=== PATIENT | female | born 1960 | race Caucasian/White ===

== ENCOUNTER 2017-08-24 16:01 | Inpatient (IN) | payer OTHER ==
[2017-08-24] MEDS ORDERED: SALINE 3% 15 ML NEB TX ONE (17:07)
[2017-08-24] MEDS ORDERED: NS 1/2 1000 ML IV 1,000 ML IV ONE (17:52)
[2017-08-24] MEDS: ROBITUSSIN DM PO SCH ×2 (17:58→21:00)
[2017-08-24] MEDS: LEVAQUIN PREMIX IV 750 MG 750 MG/150 ML BAG IV SCH (17:58)
[2017-08-24] MEDS: TAMIFLU PO SCH ×2 (17:58→21:00)
[2017-08-24] MEDS: FORTAZ or TAZICEF INJ 1 GM in NS 100 ML IV + SPIKE MINIBAG* 100 ML IV SCH ×2 (17:58→22:00)
[2017-08-24] MEDS: NS 1/2 1000 ML IV 1,000 ML IV SCH (17:58)
[2017-08-24 18:21] LABS: BASOPHILS # (AUTO) 0.1 X10^3/uL (0.0-0.1); BASOPHILS % (AUTO) 0.5 % (0.2-1.0); EOSINOPHILS # (AUTO) 0.3 x10^3/uL (0.0-0.2); EOSINOPHILS % (AUTO) 1.3 % (0.9-2.9); HEMATOCRIT 37.9 % (36.0-47.0); HEMOGLOBIN 13.1 g/dL (12.0-16.0); LYMPHOCYTES # (AUTO) 2.3 X10^3/uL (1.3-2.9); LYMPHOCYTES % (AUTO) 9.5 % (21.0-51.0); MEAN CORPUSCULAR HEMOGLOBIN 33.1 pg (27.0-34.0); MEAN CORPUSCULAR HGB CONC 34.6 g/dL (33.0-35.0); MEAN CORPUSCULAR VOLUME 95.8 fL (80.0-100.0); MEAN PLATELET VOLUME 6.5 fL (7.4-11.0); MONOCYTES % (AUTO) 4.1 % (0.0-13.0); NEUTROPHILS % (AUTO) 84.6 % (42.0-75.0); PLATELET COUNT 355 X10^3/uL (150.0-450.0); RED BLOOD COUNT 3.96 X10^6/uL (3.5-5.4); RED CELL DISTRIBUTION WIDTH 14.9 % (11.6-16.5); WHITE BLOOD COUNT 23.6 X10^3/uL (3.6-10.0)
[2017-08-24 18:40] LABS: BAND NEUTROPHILS % 10 % (0-10); PLATELET MORPHOLOGY COMMENT NORMAL (NORMAL)
[2017-08-24 18:46] LABS: ALANINE AMINOTRANSFERASE 20 Units/L (12-78); ALBUMIN 3.3 g/dL (3.4-5.0); ALKALINE PHOSPHATASE 67 Units/L (46-116); ASPARTATE AMINO TRANSFERASE 17 Units/L (15-37); BLOOD UREA NITROGEN 13 mg/dL (7-18); CALCIUM 8.2 mg/dL (8.5-10.1); CARBON DIOXIDE 29.5 mmol/L (21-32); CHLORIDE 102 mmol/L (98-107); CKMB % 2.1 % (<4); COR CA(FOR HYPOALB) 8.8 mg/dL (8.5-10.1); CREATINE KINASE 94 Units/L (26-192); CREATININE 0.85 mg/dL (0.55-1.02); SODIUM 139 mmol/L (136-145); TOTAL PROTEIN 6.5 g/dL (6.4-8.2); TROPONIN I < 0.02 ng/mL (0-1.5); eGFR BLACK RACES > 60 (>60); eGFR NON BLACK RACES > 60 (>60)
[2017-08-24 19:09] VITALS: BMI 23.6
[2017-08-24] MEDS ORDERED: ULTRAM PO ONE (21:52)
[2017-08-24 22:13] LABS: BILIRUBIN,URINE NEGATIVE (NEGATIVE); BLOOD/HEMOGLOBIN,URINE 1+ (NEGATIVE); GLUCOSE, URINE NEGATIVE (NEGATIVE); KETONES,URINE NEGATIVE (NEGATIVE); LEUKOCYTE ESTERASE ,URINE NEGATIVE (NEGATIVE); NITRITES,URINE NEGATIVE (NEGATIVE); PH,URINE 6.5 (5.0 - 8.0); PROTEIN,URINE NEGATIVE (NEGATIVE); UROBILINOGEN,URINE NORMAL (NORMAL)
[2017-08-24 22:19] LABS: CKMB % 1.9 % (<4); CREATINE KINASE 78 Units/L (26-192); CREATINE KINASE MB 1.5 ng/mL (0-4.0); TROPONIN I < 0.02 ng/mL (0-1.5)
[2017-08-24 22:26] LABS: APPEARANCE,URINE CLEAR (CLEAR); BACTERIA,URINE NEGATIVE /HPF (NEGATIVE); COLOR,URINE YELLOW (YELLOW); SQUAMOUS EPITHELIAL CELL,UR RARE /HPF (NEGATIVE)
--- NOTE | 2017-08-24 22:37 | RAD ---
HISTORY: Chest pain, hemoptysis, and pneumonia. Study: PA and lateral chest. Comparison: None available. Findings: The trachea is midline. The cardiac silhouette is unremarkable. Right basilar and right middle lobe opacities with suggestion of a parapneumonic effusion. Left lower lobe atelectasis versus early infi ltrate. Chronic emphysematous changes. No obvious pneumothorax. A thoracic nerve stimulator is seen. The bony thorax is unremarkable. IMPRESSION: Likely multifocal pneumonia. Recommend clinical/laboratory correlation and follow-up ches t x-ray in 4-6 weeks to document stability/resolution. Reported By:
[2017-08-25] MEDS ORDERED: XOPENEX 1.25 MG/3 ML NEBULE NEB SCH
[2017-08-25] MEDS: XOPENEX 1.25 MG/3 ML NEBULE NEB SCH ×4 (01:14→17:00)
[2017-08-25 01:58] LABS: CREATINE KINASE 61 Units/L (26-192); CREATINE KINASE MB 1.2 ng/mL (0-4.0); TROPONIN I < 0.02 ng/mL (0-1.5)
[2017-08-25 05:50] LABS: BASOPHILS # (AUTO) 0.1 X10^3/uL (0.0-0.1); BASOPHILS % (AUTO) 0.6 % (0.2-1.0); EOSINOPHILS # (AUTO) 0.3 x10^3/uL (0.0-0.2); EOSINOPHILS % (AUTO) 1.8 % (0.9-2.9); HEMATOCRIT 34.4 % (36.0-47.0); HEMOGLOBIN 11.9 g/dL (12.0-16.0); LYMPHOCYTES % (AUTO) 12.4 % (21.0-51.0); MEAN CORPUSCULAR HEMOGLOBIN 33.3 pg (27.0-34.0); MEAN CORPUSCULAR HGB CONC 34.4 g/dL (33.0-35.0); MEAN CORPUSCULAR VOLUME 96.7 fL (80.0-100.0); MEAN PLATELET VOLUME 6.7 fL (7.4-11.0); MONOCYTES # (AUTO) 0.7 x10^3/uL (0.3-0.8); MONOCYTES % (AUTO) 4.5 % (0.0-13.0); NEUTROPHILS # (AUTO) 13.1 x10^3/uL (2.2-4.8); NEUTROPHILS % (AUTO) 80.7 % (42.0-75.0); PLATELET COUNT 331 X10^3/uL (150.0-450.0); RED BLOOD COUNT 3.56 X10^6/uL (3.5-5.4); WHITE BLOOD COUNT 16.3 X10^3/uL (3.6-10.0)
[2017-08-25 05:55] LABS: ALANINE AMINOTRANSFERASE 18 Units/L (12-78); ALBUMIN 2.8 g/dL (3.4-5.0); ALKALINE PHOSPHATASE 58 Units/L (46-116); ASPARTATE AMINO TRANSFERASE 14 Units/L (15-37); BLOOD UREA NITROGEN 11 mg/dL (7-18); CALCIUM 7.8 mg/dL (8.5-10.1); CHLORIDE 104 mmol/L (98-107); COR CA(FOR HYPOALB) 8.8 mg/dL (8.5-10.1); COR NA(FOR HYPERGLY) 141 mmol/L (136-145); CREATININE 0.76 mg/dL (0.55-1.02); SODIUM 140 mmol/L (136-145); TOTAL PROTEIN 5.9 g/dL (6.4-8.2); eGFR BLACK RACES > 60 (>60); eGFR NON BLACK RACES > 60 (>60)
[2017-08-25] MEDS: FORTAZ or TAZICEF INJ 1 GM in NS 100 ML IV + SPIKE MINIBAG* 100 ML IV SCH ×3 (05:58→21:46)
--- NOTE | 2017-08-25 08:31 | RAD ---
HISTORY: Chest pain, hemoptysis, pneumonia. Prior history of rheumatoid arthritis, COPD, lupus. Study: Single-view chest Comparison: 08/24/2017. Findings: Trachea is midline. Heart size is upper normal. Increasing density is present in the lung bases, refl ecting increased infiltrate, edema and/or pleural fluid. No pneumothorax is seen. Osseous structures are intact. Thoracic spine stimulating electrodes are again noted. IMPRESSION: Increasing bibasilar lung densities reflecting increase in infiltrate, edema and/or pleural fluid. Reported By:
[2017-08-25] MEDS: LEVAQUIN PREMIX IV 750 MG 750 MG/150 ML BAG IV SCH (09:17)
[2017-08-25] MEDS: ROBITUSSIN DM PO SCH ×4 (09:17→21:47)
[2017-08-25] MEDS: TAMIFLU PO SCH ×2 (09:17→21:47)
[2017-08-25] MEDS: PEPCID 20 MG IV PREMIX* 20 MG/50 ML BAG IV SCH ×2 (12:10→21:46)
[2017-08-25] MEDS: SOLU-Medrol 40 MG VIAL IVP SCH ×3 (12:11→21:47)
[2017-08-25] MEDS: PERCOCET TAB 5/325 MG PO PRN ×2 (12:12→21:46)
[2017-08-25] MEDS: PROTONIX INJ 40 MG VIAL IVP SCH ×2 (12:12→21:47)
[2017-08-25] MEDS: DIFLUCAN PO SCH (12:12)
[2017-08-25] MEDS: FOLIC ACID TAB 1 MG PO SCH (12:12)
[2017-08-25] MEDS: ELIQUIS PO SCH ×2 (12:12→21:47)
--- NOTE | 2017-08-25 14:04 | DR.UPDATE ---
H&P Update History and Physical Update: PRESENTED TO THE OFFICE TODAY. SHE WAS ADMITTED FOR PNEUMONIA, HEMOPTYSIS , AND CHEST PAIN. A H&P WAS COMPLETED PRIOR TO ADMISSION. PATIENT HAS BEEN SEEN AND EXAMINED WITH NO CHANGES NOTED TO H&P. Changes noted: NO Yes with the following:
[2017-08-25] MEDS ORDERED: POTASSIUM CHL 60 MEQ/NS 0.45% 500 ML IV PRN (14:13)
[2017-08-25] MEDS ORDERED: POTASSIUM CHLORIDE LIQ 20 MEQ UDC PO PRN (14:13)
[2017-08-25] MEDS ORDERED: K-RIDER 10 MEQ/NS 100 ML 10 MEQ/100 ML BAG IV PRN (14:13)
[2017-08-25] MEDS ORDERED: POTASSIUM CHL 40 MEQ/NS 0.45% 500 ML IV PRN (14:13)
[2017-08-25] MEDS ORDERED: K-LYTE EFFERVESCENT PO PRN (14:13)
[2017-08-25] MEDS ORDERED: NS 1/2 1000 ML IV 1,000 ML IV ONE (14:18)
[2017-08-25] MEDS: NS 1/2 1000 ML IV 1,000 ML IV SCH ×2 (14:22→21:54)
[2017-08-25] MEDS: ELAVIL PO SCH (21:47)
[2017-08-25] MEDS: VALIUM PO SCH (21:47)
[2017-08-25] MEDS: CARDIZEM SR 120 MG PO SCH (21:47)
[2017-08-26] MEDS: XOPENEX 1.25 MG/3 ML NEBULE NEB SCH ×4 (00:33→18:01)
[2017-08-26] MEDS ORDERED: NS 100 ML IV + SPIKE MINIBAG* 100 ML IV ONE (05:46)
[2017-08-26] MEDS ORDERED: FORTAZ or TAZICEF INJ ONE (05:49)
[2017-08-26] MEDS: SOLU-Medrol 40 MG VIAL IVP SCH ×3 (05:51→21:49)
[2017-08-26] MEDS: FORTAZ or TAZICEF INJ 1 GM in NS 100 ML IV + SPIKE MINIBAG* 100 ML IV SCH ×3 (05:51→21:48)
[2017-08-26 06:04] LABS: ALANINE AMINOTRANSFERASE 17 Units/L (12-78); ALKALINE PHOSPHATASE 62 Units/L (46-116); ASPARTATE AMINO TRANSFERASE 12 Units/L (15-37); BLOOD UREA NITROGEN 9 mg/dL (7-18); CARBON DIOXIDE 27.4 mmol/L (21-32); CHLORIDE 104 mmol/L (98-107); COR CA(FOR HYPOALB) 8.8 mg/dL (8.5-10.1); COR NA(FOR HYPERGLY) 143 mmol/L (136-145); CREATININE 0.75 mg/dL (0.55-1.02); SODIUM 139 mmol/L (136-145); TOTAL PROTEIN 6.5 g/dL (6.4-8.2); eGFR BLACK RACES > 60 (>60); eGFR NON BLACK RACES > 60 (>60)
[2017-08-26 06:13] LABS: BASOPHILS % (AUTO) 0.1 % (0.2-1.0); HEMATOCRIT 37.7 % (36.0-47.0); HEMOGLOBIN 12.7 g/dL (12.0-16.0); LYMPHOCYTES # (AUTO) 0.5 X10^3/uL (1.3-2.9); LYMPHOCYTES % (AUTO) 3.8 % (21.0-51.0); MEAN CORPUSCULAR HEMOGLOBIN 33.1 pg (27.0-34.0); MEAN CORPUSCULAR HGB CONC 33.8 g/dL (33.0-35.0); MEAN PLATELET VOLUME 6.5 fL (7.4-11.0); MONOCYTES # (AUTO) 0.1 x10^3/uL (0.3-0.8); MONOCYTES % (AUTO) 1.2 % (0.0-13.0); NEUTROPHILS % (AUTO) 94.9 % (42.0-75.0); PLATELET COUNT 364 X10^3/uL (150.0-450.0); RED BLOOD COUNT 3.85 X10^6/uL (3.5-5.4); RED CELL DISTRIBUTION WIDTH 14.5 % (11.6-16.5); WHITE BLOOD COUNT 12.6 X10^3/uL (3.6-10.0)
--- NOTE | 2017-08-26 07:05 | RAD ---
Examination: AP chest History: Chest pain, pneumonia Comparison reference 08/25/2017 Findings: Continued normal heart size. There is interval improvement in aeration of the lungs with de creasing airspace disease in the lower lobes. Persistent vascular congestion and mild interstitial in filtrates persist. Impression: Significant improvement in 1 day, most consistent with resolving CHF/edema. Reported By:
[2017-08-26 07:20] LABS: PLATELET MORPHOLOGY COMMENT NORMAL (NORMAL)
[2017-08-26] MEDS: TAMIFLU PO SCH ×2 (09:09→20:58)
[2017-08-26] MEDS: CARDIZEM SR 120 MG PO SCH ×2 (09:10→20:55)
[2017-08-26] MEDS: ELIQUIS PO SCH ×2 (09:10→20:57)
[2017-08-26] MEDS: DIFLUCAN PO SCH (09:10)
[2017-08-26] MEDS: FOLIC ACID TAB 1 MG PO SCH (09:10)
[2017-08-26] MEDS: ROBITUSSIN DM PO SCH ×4 (09:10→21:02)
[2017-08-26] MEDS: ESTRATEST TAB 1.25/2.5 MG PO SCH (09:10)
[2017-08-26] MEDS: PROTONIX INJ 40 MG VIAL IVP SCH ×2 (09:10→20:59)
[2017-08-26] MEDS: PEPCID 20 MG IV PREMIX* 20 MG/50 ML BAG IV SCH ×2 (09:10→20:58)
[2017-08-26] MEDS: LEVAQUIN PREMIX IV 750 MG 750 MG/150 ML BAG IV SCH (09:11)
[2017-08-26] MEDS: PERCOCET TAB 5/325 MG PO PRN ×2 (10:44→21:52)
[2017-08-26] MEDS: LASIX IVP SCH ×2 (10:56→20:58)
[2017-08-26] MEDS: HumuLIN R SUBCUT PRN ×2 (12:25→16:35)
[2017-08-26] MEDS ORDERED: NS 1/2 1000 ML IV 1,000 ML IV ONE (14:12)
[2017-08-26] MEDS: TUSSIONEX PENNKINETIC SUSP PO PRN ×2 (14:33→18:35)
[2017-08-26] MEDS: NS 1/2 1000 ML IV 1,000 ML IV SCH (14:33)
--- NOTE | 2017-08-26 20:19 | PCM.PROG ---
Progress Note - Progress Note for Day of Date: 08/25/17 - Subjective Subjective: WAS ADMITTED YESTERDAY. SHE IS CURRENTLY BEING TREATED FOR PNEUMONIA. TODAY, SHE IS ALERT AND ORIENTED, LYING IN BED IN MORNING ROUNDS. SHE IS NOTED WITH COMPLAINTS OF COUGH, SHORTNESS OF BREATH, AND A NON- PRODUCTIVE COUGH. SHE DENIES COMPLAINTS OF CHEST PAIN THIS MORNING. ON EXAMINATION, HEART IS REGULAR IN RATE AND RHYTHM. BILATERAL LUNGS ARE NOTED WITH SCATTERED WHEEZING AND RHONCHI THROUGHOUT. SHE IS CURRENTLY UTILIZING OXYGEN VIA NASAL CANNULA AT 2L/MIN. ABDOMEN IS FLAT, SOFT, AND NON-TENDER WITH NORMAL BOWEL SOUNDS NOTED IN ALL QUADRANTS. THERE IS NORMAL RANGE OF MOTION NOTED TO ALL EXTREMITIES. HER VITALS THIS MORNING ARE 98.1-81-25-95%-96/55. ABNORMAL LAB VALUES INCLUDE THE FOLLOWING: WBC 16.3, HGB 11.9, HCT 34.4, POTASSIUM 3.2, GLUCOSE 125, AST 14, TOTAL PROTEIN 5.9, ALBUMIN 2.8. BLOOD CULTURES AND A URINE CULTURE ARE PENDING. CARDIAC ENZYMES AND EKGs HAVE BEEN WITHIN NORMAL LIMITS. A CHEST XRAY WAS OBTAINED THIS MORNING AND REVEALED INCREASING BIBASILAR LUNG DENSITIES REFLECTING INCREASE IN INFILTRATE, EDEMA, AND/OR PLEURAL FLUID. TODAY, WE WILL CONTINUE WITH CURRENT IV ANTIBIOTICS AND RESPIRATORY TREATMENTS. WE WILL START SOLU-MEDROL 60MG IV Q8H, PEPCID 20MG IV Q12H, AND PROTONIX 40MG IV BID. OTHERWISE, WE WILL CONTINUE WITH CURRENT PLAN OF CARE TODAY. WE PLAN TO FOLLOW UP WITH AM LABS AND CONTINUE TO MONITOR PATIENT. - Past Medical Family Social History Past Med/Fam/Surg Hx: No changes since H&P Allergies: Allergies gabapentin [From Gralise] Allergy (Verified 08/24/17 17:32) - Review of Systems ROS: No change since H&P - Vital Signs and I&O's Vital Signs: Temperature 98.7 F Pulse Rate [Right Brachial] 88 Pulse Rate [Left Brachial] 81 Pulse Rate [Apical] 80 Pulse Rate 89 Respiratory Rate 22 Blood Pressure [Right Arm] 115/59 Blood Pressure [Left Arm] 101/60 O2 Sat by Pulse Oximetry 94 Intake and Output: Intake & Output 08/24/17 08/25/17 08/26/17 08/27/17 11:59 11:59 11:59 11:59 Intake Total 1675 1772 2048 Output Total 2500 Balance 3070 -388 2047 - Physical Exam Oriented: Normal Eyes: Normal Ear: Normal Nose: Normal Throat: Normal Respiratory: Right, Left, Generalized, Wheezes, Rhonchi Cardiovascular: Normal : Normal Auscultation: Bowel Sounds: Normal Palpation: Normal Tenderness: Normal Skin: Normal Musculoskeletal: Normal Psychiatric: Normal Mood Description: Calm Affect: Normal Speech Pattern: Clear, Appropriate - Laboratory and Diagnostics Result Diagrams: 08/26/17 05:06 08/26/17 05:06 Labs: 08/24/17 17:50 Sputum - Expectorated Sputum Sputum Culture - Preliminary 08/24/17 17:50 Sputum - Expectorated Sputum - Final 08/24/17 17:52 Blood Blood Culture - Preliminary 08/24/17 17:50 Blood Blood Culture - Preliminary Laboratory WBC 12.6 X10^3/uL (3.6-10.0) H 08/26/17 05:06 RBC 3.85 X10^6/uL (3.5-5.4) 08/26/17 05:06 Hgb 12.7 g/dL (12.0-16.0) 08/26/17 05:06 Hct 37.7 % (36.0-47.0) 08/26/17 05:06 MCV 98.0 fL (80.0-100.0) 08/26/17 05:06 MCH 33.1 pg (27.0-34.0) 08/26/17 05:06 MCHC 33.8 g/dL (33.0-35.0) 08/26/17 05:06 RDW 14.5 % (11.6-16.5) 08/26/17 05:06 Plt Count 364 X10^3/uL (150.0-450.0) 08/26/17 05:06 Plt Count Comment Adequate (ADEQUATE) 08/26/17 05:06 MPV 6.5 fL (7.4-11.0) L 08/26/17 05:06 Neut % (Auto) 94.9 % (42.0-75.0) H 08/26/17 05:06 Lymph % (Auto) 3.8 % (21.0-51.0) L 08/26/17 05:06 [place] % (Auto) 1.2 % (0.0-13.0) 08/26/17 05:06 Eos % (Auto) 0.0 % (0.9-2.9) L 08/26/17 05:06 Baso % (Auto) 0.1 % (0.2-1.0) L 08/26/17 05:06 Neut # (Auto) 12.0 x10^3/uL (2.2-4.8) H 08/26/17 05:06 Lymph # (Auto) 0.5 X10^3/uL (1.3-2.9) L 08/26/17 05:06 [place] # (Auto) 0.1 x10^3/uL (0.3-0.8) L 08/26/17 05:06 Eos # (Auto) 0.0 x10^3/uL (0.0-0.2) 08/26/17 05:06 Baso # (Auto) 0.0 X10^3/uL (0.0-0.1) 08/26/17 05:06 Absolute Nucleated RBC 0.0 /100WBC 08/26/17 05:06 Total Counted 100 08/26/17 05:06 Neutrophils % (Manual) 95 % (39-76) H 08/26/17 05:06 Band Neutrophils % 10 % (0-10) 08/24/17 17:50 Lymphocytes % (Manual) 3 % (13-43) L 08/26/17 05:06 Monocytes % (Manual) 2 % (4-9) L 08/26/17 05:06 Plt Morphology Comment Normal (NORMAL) 08/26/17 05:06 RBC Morphology Normal (NORMAL) 08/26/17 05:06 Sodium 139 mmol/L (136-145) 08/26/17 05:06 Corrected Sodium 143 mmol/L (136-145) 08/26/17 05:06 Potassium 3.6 mmol/L (3.5-5.1) 08/26/17 05:06 Chloride 104 mmol/L (98-107) 08/26/17 05:06 Carbon Dioxide 27.4 mmol/L (21-32) 08/26/17 05:06 BUN 9 mg/dL (7-18) 08/26/17 05:06 Creatinine 0.75 mg/dL (0.55-1.02) 08/26/17 05:06 Est GFR (MDRD) Af Amer > 60 (>60) 08/26/17 05:06 Est GFR (MDRD) Non-Af > 60 (>60) 08/26/17 05:06 Glucose 275 mg/dL (65-99) H 08/26/17 05:06 POC Glucose (mg/dL) 161 mg/dL (65-99) H 08/26/17 20:04 Calcium 8.0 mg/dL (8.5-10.1) L 08/26/17 05:06 Corrected Calcium 8.8 mg/dL (8.5-10.1) 08/26/17 05:06 Magnesium 1.6 mg/dL (1.7-2.9) L 08/25/17 04:42 Total Bilirubin 0.10 mg/dL (0.2-1.0) L 08/26/17 05:06 AST 12 Units/L (15-37) L 08/26/17 05:06 ALT 17 Units/L (12-78) 08/26/17 05:06 Alkaline Phosphatase 62 Units/L (46-116) 08/26/17 05:06 Creatine Kinase 61 Units/L (26-192) 08/25/17 01:23 CK-MB (CK-2) 1.2 ng/mL (0-4.0) 08/25/17 01:23 CK/CKMB % Calc 2.0 % (<4) 08/25/17 01:23 Troponin I < 0.02 ng/mL (0-1.5) 08/25/17 01:23 B-Natriuretic Peptide 454 pg/mL (0-79) H 08/26/17 05:06 Total Protein 6.5 g/dL (6.4-8.2) 08/26/17 05:06 Albumin 3.0 g/dL (3.4-5.0) L 08/26/17 05:06 Globulin 3.5 g/dL (2.5-4.5) 08/26/17 05:06 Albumin/Globulin Ratio 0.9 Ratio (1.1-2.1) L 08/26/17 05:06 Specimen Type Clean catch urine 08/24/17 21:45 Urine Color Yellow (YELLOW) 08/24/17 21:45 Urine Appearance Clear (CLEAR) 08/24/17 21:45 Urine pH 6.5 (5.0 - 8.0) 08/24/17 21:45 Ur Specific [place] 1.005 (1.000-1.030) 08/24/17 21:45 Urine Protein Negative (NEGATIVE) 08/24/17 21:45 Urine Glucose (UA) Negative (NEGATIVE) 08/24/17 21:45 Urine Ketones Negative (NEGATIVE) 08/24/17 21:45 Urine Occult Blood 1+ (NEGATIVE) 08/24/17 21:45 Urine Nitrite Negative (NEGATIVE) 08/24/17 21:45 Urine Bilirubin Negative (NEGATIVE) 08/24/17 21:45 Urine Urobilinogen Normal (NORMAL) 08/24/17 21:45 Ur Leukocyte Esterase Negative (NEGATIVE) 08/24/17 21:45 Urine RBC 3-5 /HPF (NONE SEEN) 08/24/17 21:45 Urine WBC 0-2 /HPF (NONE SEEN) 08/24/17 21:45 Ur Squamous Epith Cells Rare /HPF (NEGATIVE) 08/24/17 21:45 Urine Bacteria Negative /HPF (NEGATIVE) 08/24/17 21:45 Ur Culture Indicated? No/not indicated 08/24/17 21:45 Influenza Type A (PCR) Negative (NEGATIVE) 08/24/17 17:45 Influenza Type B (PCR) Negative (NEGATIVE) 08/24/17 17:45 - Plan (1) Pneumonia Status: Acute Qualifiers: Pneumonia type: due to unspecified organism Laterality: left Lung location: lower lobe of lung Qualified Code(s): J18.1 - Lobar pneumonia, unspecified organism Plan: LEVAQUIN 750MG IV DAILY, FORTAZ 1GM IV Q8H, SOLU-MEDROL 60MG IV Q8H, RESPIRATORY TREATMENTS, SUPPLEMENTAL OXYGEN, CONTINUE TO MONITOR (2) Hemoptysis Status: Acute Plan: CONTINUE TO MONITOR
[2017-08-26] MEDS: ELAVIL PO SCH (20:57)
[2017-08-26] MEDS: VALIUM PO SCH (21:03)
[2017-08-27] MEDS: XOPENEX 1.25 MG/3 ML NEBULE NEB SCH ×4 (00:15→17:11)
[2017-08-27] MEDS: NS 1/2 1000 ML IV 1,000 ML IV SCH ×3 (01:25→22:06)
[2017-08-27] MEDS: FORTAZ or TAZICEF INJ 1 GM in NS 100 ML IV + SPIKE MINIBAG* 100 ML IV SCH ×3 (05:25→22:05)
[2017-08-27] MEDS: SOLU-Medrol 40 MG VIAL IVP SCH ×3 (05:25→22:08)
[2017-08-27 05:45] LABS: BASOPHILS # (AUTO) 0.1 X10^3/uL (0.0-0.1); BASOPHILS % (AUTO) 0.3 % (0.2-1.0); HEMATOCRIT 36.4 % (36.0-47.0); HEMOGLOBIN 12.6 g/dL (12.0-16.0); LYMPHOCYTES # (AUTO) 0.6 X10^3/uL (1.3-2.9); LYMPHOCYTES % (AUTO) 3.5 % (21.0-51.0); MEAN CORPUSCULAR HEMOGLOBIN 33.4 pg (27.0-34.0); MEAN CORPUSCULAR HGB CONC 34.5 g/dL (33.0-35.0); MEAN CORPUSCULAR VOLUME 96.6 fL (80.0-100.0); MEAN PLATELET VOLUME 6.5 fL (7.4-11.0); MONOCYTES # (AUTO) 0.5 x10^3/uL (0.3-0.8); MONOCYTES % (AUTO) 2.8 % (0.0-13.0); NEUTROPHILS # (AUTO) 15.5 x10^3/uL (2.2-4.8); NEUTROPHILS % (AUTO) 93.4 % (42.0-75.0); PLATELET COUNT 349 X10^3/uL (150.0-450.0); RED BLOOD COUNT 3.76 X10^6/uL (3.5-5.4); RED CELL DISTRIBUTION WIDTH 15.2 % (11.6-16.5); WHITE BLOOD COUNT 16.6 X10^3/uL (3.6-10.0)
[2017-08-27 05:55] LABS: ALANINE AMINOTRANSFERASE 43 Units/L (12-78); ALBUMIN 3.1 g/dL (3.4-5.0); ALKALINE PHOSPHATASE 62 Units/L (46-116); ASPARTATE AMINO TRANSFERASE 32 Units/L (15-37); BLOOD UREA NITROGEN 14 mg/dL (7-18); CALCIUM 8.1 mg/dL (8.5-10.1); CARBON DIOXIDE 27.4 mmol/L (21-32); CHLORIDE 105 mmol/L (98-107); COR CA(FOR HYPOALB) 8.8 mg/dL (8.5-10.1); COR NA(FOR HYPERGLY) 144 mmol/L (136-145); CREATININE 0.85 mg/dL (0.55-1.02); SODIUM 143 mmol/L (136-145); TOTAL PROTEIN 6.6 g/dL (6.4-8.2); eGFR BLACK RACES > 60 (>60); eGFR NON BLACK RACES > 60 (>60)
[2017-08-27 06:17] LABS: BAND NEUTROPHILS % 4 % (0-10); PLATELET MORPHOLOGY COMMENT NORMAL (NORMAL)
[2017-08-27] MEDS: TUSSIONEX PENNKINETIC SUSP PO PRN ×2 (06:50→22:07)
--- NOTE | 2017-08-27 07:40 | RAD ---
HISTORY: Chest pain, hemoptysis, pneumonia Study: Chest AP portable Comparison: 08/26/2017 Findings: The heart is within normal limits in size. The trudy are normal. The lungs are mildly hyperinflated. D iffuse interstitial lung changes are present not significantly changed from the prior examination. Th ere is a mild superimposed alveolar infiltrate in the right lung base also unchanged no pleural effus ions are identified. The bony thorax is unremarkable. IMPRESSION: Diffuse interstitial lung changes, stable Right basilar infiltrate, stable Reported By:
[2017-08-27] MEDS: ELIQUIS PO SCH ×2 (09:40→22:07)
[2017-08-27] MEDS: CARDIZEM SR 120 MG PO SCH ×2 (09:40→22:07)
[2017-08-27] MEDS: FOLIC ACID TAB 1 MG PO SCH (09:40)
[2017-08-27] MEDS: TAMIFLU PO SCH ×2 (09:40→22:07)
[2017-08-27] MEDS: DIFLUCAN PO SCH (09:40)
[2017-08-27] MEDS: ESTRATEST TAB 1.25/2.5 MG PO SCH (09:40)
[2017-08-27] MEDS: LEVAQUIN PREMIX IV 750 MG 750 MG/150 ML BAG IV SCH (09:41)
[2017-08-27] MEDS: ROBITUSSIN DM PO SCH ×4 (09:41→22:58)
[2017-08-27] MEDS: PROTONIX INJ 40 MG VIAL IVP SCH ×2 (09:41→22:09)
[2017-08-27] MEDS: LASIX IVP SCH ×2 (09:41→22:09)
[2017-08-27] MEDS: PEPCID 20 MG IV PREMIX* 20 MG/50 ML BAG IV SCH ×2 (09:41→22:05)
[2017-08-27] MEDS ORDERED: NS 1/2 1000 ML IV 1,000 ML IV ONE ×2 (09:51→21:56)
[2017-08-27] MEDS: PERCOCET TAB 5/325 MG PO PRN ×2 (09:55→22:08)
[2017-08-27] MEDS ORDERED: MUCOMYST 20% 200 MG/ML NEB SCH (11:45)
[2017-08-27] MEDS: MUCOMYST 20% 200 MG/ML NEB SCH (17:11)
[2017-08-27] MEDS: ELAVIL PO SCH (22:07)
[2017-08-27] MEDS: VALIUM PO SCH (22:08)
[2017-08-28] MEDS ORDERED: PULMICORT NEB TX 0.5 MG NEB ONE (00:58)
[2017-08-28] MEDS: XOPENEX 1.25 MG/3 ML NEBULE NEB SCH ×2 (01:15→05:52)
[2017-08-28] MEDS: MUCOMYST 20% 200 MG/ML NEB SCH ×2 (01:15→05:52)
[2017-08-28] MEDS ORDERED: NS 1/2 1000 ML IV 0 ML IV ONE (05:29)
[2017-08-28 05:38] LABS: BASOPHILS % (AUTO) 0.2 % (0.2-1.0); HEMATOCRIT 37.9 % (36.0-47.0); LYMPHOCYTES # (AUTO) 0.5 X10^3/uL (1.3-2.9); LYMPHOCYTES % (AUTO) 5.7 % (21.0-51.0); MEAN CORPUSCULAR HEMOGLOBIN 33.1 pg (27.0-34.0); MEAN CORPUSCULAR HGB CONC 34.2 g/dL (33.0-35.0); MEAN CORPUSCULAR VOLUME 96.9 fL (80.0-100.0); MEAN PLATELET VOLUME 6.5 fL (7.4-11.0); MONOCYTES # (AUTO) 0.6 x10^3/uL (0.3-0.8); MONOCYTES % (AUTO) 6.6 % (0.0-13.0); NEUTROPHILS # (AUTO) 8.3 x10^3/uL (2.2-4.8); NEUTROPHILS % (AUTO) 87.5 % (42.0-75.0); PLATELET COUNT 431 X10^3/uL (150.0-450.0); RED BLOOD COUNT 3.92 X10^6/uL (3.5-5.4); RED CELL DISTRIBUTION WIDTH 15.1 % (11.6-16.5); WHITE BLOOD COUNT 9.5 X10^3/uL (3.6-10.0)
[2017-08-28 05:45] LABS: ALANINE AMINOTRANSFERASE 123 Units/L (12-78); ALKALINE PHOSPHATASE 58 Units/L (46-116); ASPARTATE AMINO TRANSFERASE 50 Units/L (15-37); BLOOD UREA NITROGEN 16 mg/dL (7-18); CALCIUM 7.9 mg/dL (8.5-10.1); CARBON DIOXIDE 32.8 mmol/L (21-32); CHLORIDE 105 mmol/L (98-107); COR CA(FOR HYPOALB) 8.7 mg/dL (8.5-10.1); COR NA(FOR HYPERGLY) 145 mmol/L (136-145); CREATININE 0.76 mg/dL (0.55-1.02); MAGNESIUM 1.7 mg/dL (1.7-2.9); SODIUM 144 mmol/L (136-145); TOTAL PROTEIN 6.2 g/dL (6.4-8.2); eGFR BLACK RACES > 60 (>60); eGFR NON BLACK RACES > 60 (>60)
[2017-08-28] MEDS: FORTAZ or TAZICEF INJ 1 GM in NS 100 ML IV + SPIKE MINIBAG* 100 ML IV SCH (05:46)
[2017-08-28] MEDS: NS 1/2 1000 ML IV 1,000 ML IV SCH (05:46)
[2017-08-28] MEDS: SOLU-Medrol 40 MG VIAL IVP SCH (05:46)
[2017-08-28] MEDS: MAGNESIUM SULFATE 1 GM/100 mL PREMIX 1 GM/100 ML BAG IV PRN ×2 (06:33→10:21)
--- NOTE | 2017-08-28 07:22 | RAD ---
HISTORY: 57-year-old female with shortness of breath. History of COPD. Study: Frontal view of the chest. Comparison: Chest radiograph 08/27/2017 Findings: Spinal neurostimulator is stable. The trachea is midline. The cardiac silhouette is stably enlarged with continued diffuse interstitia l disease and prominent perihilar lung markings. No large consolidation, pneumothorax or effusion. S oft tissues are unremarkable. Osseous structures are unremarkable. IMPRESSION: 1. No acute cardiopulmonary disease. Reported By:
[2017-08-28] MEDS: CARDIZEM SR 120 MG PO SCH (09:58)
[2017-08-28] MEDS: ELIQUIS PO SCH (09:58)
[2017-08-28] MEDS: FOLIC ACID TAB 1 MG PO SCH (09:58)
[2017-08-28] MEDS: DIFLUCAN PO SCH (09:58)
[2017-08-28] MEDS: TAMIFLU PO SCH (09:59)
[2017-08-28] MEDS: ROBITUSSIN DM PO SCH (09:59)
[2017-08-28] MEDS: PROTONIX INJ 40 MG VIAL IVP SCH (09:59)
[2017-08-28] MEDS: LASIX IVP SCH (09:59)
[2017-08-28] MEDS: LEVAQUIN PREMIX IV 750 MG 750 MG/150 ML BAG IV SCH (09:59)
[2017-08-28] MEDS: PEPCID 20 MG IV PREMIX* 20 MG/50 ML BAG IV SCH (09:59)
[2017-08-28] MEDS: PERCOCET TAB 5/325 MG PO PRN (10:02)
[2017-08-28 12:15] VITALS: BP 139/65
[2017-08-28] MEDS: TUSSIONEX PENNKINETIC SUSP PO PRN (14:14)
[2017-08-28] MEDS ORDERED: ESTRATEST TAB 1.25/2.5 MG PO SCH (21:00)
== END 2017-08-28 14:35 | disposition home or self-care (01) | DRG 194 ==
LOC: ICU 16:01 → OBSVTOIN 16:01 → MED/SURG 08-25 14:25
PROVIDERS: ADMIT Internal Medicine; ATTEND Internal Medicine
DX: J13 Pneumonia due to Streptococcus pneumoniae (principal); R04.2 Hemoptysis; J15.8 Pneumonia due to other specified bacteria; J44.9 Chronic obstructive pulmonary disease, unspecified; R06.02 Shortness of breath
CPT/HCPCS: 36415; 71045; 71046; 80053; 81001; 82550; 82553; 83735; 83880; 84484; 85025; 87040; 87070; 87077; 87186; 87205; 87502; 93005; 94640; 94762; 99238; A4222; C9113; G9035; S0028; J0713; J1815; J1940; J1956; J2920; J7608; J7626

== ENCOUNTER 2018-03-31 17:25 | Inpatient (IN) ==
[2018-03-31] MEDS ORDERED: DUONEB 0.5 MG/3 MG NEB SCH (17:52)
[2018-03-31 18:11] LABS: BASOPHILS # (AUTO) 0.1 X10^3/uL (0.0-0.1); BASOPHILS % (AUTO) 0.4 % (0.2-1.0); EOSINOPHILS # (AUTO) 0.1 x10^3/uL (0.0-0.2); EOSINOPHILS % (AUTO) 0.6 % (0.9-2.9); HEMOGLOBIN 16.1 g/dL (12.0-16.0); LYMPHOCYTES # (AUTO) 2.5 X10^3/uL (1.3-2.9); LYMPHOCYTES % (AUTO) 12.2 % (21.0-51.0); MEAN CORPUSCULAR HGB CONC 34.3 g/dL (33.0-35.0); MEAN PLATELET VOLUME 6.9 fL (7.4-11.0); MONOCYTES # (AUTO) 1.1 x10^3/uL (0.3-0.8); MONOCYTES % (AUTO) 5.4 % (0.0-13.0); NEUTROPHILS # (AUTO) 16.4 x10^3/uL (2.2-4.8); NEUTROPHILS % (AUTO) 81.4 % (42.0-75.0); PLATELET COUNT 318 X10^3/uL (150.0-450.0); RED BLOOD COUNT 4.75 X10^6/uL (3.5-5.4); RED CELL DISTRIBUTION WIDTH 13.5 % (11.6-16.5); WHITE BLOOD COUNT 20.1 X10^3/uL (3.6-10.0)
[2018-03-31] MEDS: LEVAQUIN PREMIX IV 750 MG 750 MG/150 ML BAG IV SCH (18:23)
[2018-03-31] MEDS: FORTAZ or TAZICEF VIAL INJ IVP SCH ×2 (18:23→22:30)
[2018-03-31] MEDS: NS 1000 ML 1,000 ML IV SCH (18:23)
[2018-03-31] MEDS: SOLU-Medrol 40 MG VIAL IVP SCH ×2 (18:23→21:23)
[2018-03-31 18:25] LABS: ALANINE AMINOTRANSFERASE 30 Units/L (12-78); ALBUMIN 3.4 g/dL (3.4-5.0); ALKALINE PHOSPHATASE 95 Units/L (46-116); ASPARTATE AMINO TRANSFERASE 22 Units/L (15-37); BLOOD UREA NITROGEN 8 mg/dL (7-18); CALCIUM 8.4 mg/dL (8.5-10.1); CARBON DIOXIDE 31.1 mmol/L (21-32); CHLORIDE 99 mmol/L (98-107); CREATININE 0.85 mg/dL (0.55-1.02); SODIUM 136 mmol/L (136-145); TOTAL PROTEIN 7.1 g/dL (6.4-8.2); eGFR NON BLACK RACES > 60 (>60)
[2018-03-31 18:28] LABS: FRACTIONATED INSPIRED OXYGEN 28
[2018-03-31] MEDS ORDERED: PULMICORT NEB TX 0.5 MG NEB ONE (18:32)
[2018-03-31] MEDS: PULMICORT NEB TX 0.5 MG NEB SCH ×2 (18:40→21:27)
[2018-03-31] MEDS: DUONEB 0.5 MG/3 MG NEB SCH ×2 (18:40→21:28)
[2018-03-31] MEDS: MUCOMYST 20% 200 MG/ML NEB SCH ×2 (18:40→21:28)
--- NOTE | 2018-03-31 19:48 | RAD ---
Chest AP portable Indication: Dyspnea. COPD. Comparison: 08/29/2015 Findings: There is no pneumothorax or effusion. There is no consolidation. There is cardiomegaly with patchy bilateral pulmonary opacities in the mid lungs and in the left lower lung. This has worsened from the prior. Impression: Chronic lung changes with patchy bilateral pulmonary opacities, worsened from the prior suggesting multifocal pneumonia. Follow-up to resolution to exclude underlying lesion. Reported By:
[2018-03-31 20:07] VITALS: BMI 24.4
[2018-04-01] MEDS: DUONEB 0.5 MG/3 MG NEB SCH ×6 (01:19→20:17)
[2018-04-01] MEDS: FORTAZ or TAZICEF VIAL INJ IVP SCH ×3 (05:23→21:30)
[2018-04-01] MEDS: SOLU-Medrol 40 MG VIAL IVP SCH ×3 (05:24→21:30)
[2018-04-01] MEDS: NS 1000 ML 1,000 ML IV SCH ×3 (05:29→20:15)
[2018-04-01 06:30] LABS: BASOPHILS % (AUTO) 0.1 % (0.2-1.0); HEMATOCRIT 42.3 % (36.0-47.0); HEMOGLOBIN 14.4 g/dL (12.0-16.0); LYMPHOCYTES # (AUTO) 0.8 X10^3/uL (1.3-2.9); LYMPHOCYTES % (AUTO) 5.2 % (21.0-51.0); MEAN CORPUSCULAR HEMOGLOBIN 33.4 pg (27.0-34.0); MEAN CORPUSCULAR VOLUME 98.3 fL (80.0-100.0); MEAN PLATELET VOLUME 7.2 fL (7.4-11.0); MONOCYTES # (AUTO) 0.2 x10^3/uL (0.3-0.8); NEUTROPHILS # (AUTO) 14.1 x10^3/uL (2.2-4.8); NEUTROPHILS % (AUTO) 93.7 % (42.0-75.0); PLATELET COUNT 271 X10^3/uL (150.0-450.0); RED BLOOD COUNT 4.31 X10^6/uL (3.5-5.4); RED CELL DISTRIBUTION WIDTH 13.4 % (11.6-16.5)
[2018-04-01 07:00] LABS: ALANINE AMINOTRANSFERASE 23 Units/L (12-78); ALBUMIN 2.8 g/dL (3.4-5.0); ALKALINE PHOSPHATASE 86 Units/L (46-116); ASPARTATE AMINO TRANSFERASE 17 Units/L (15-37); BLOOD UREA NITROGEN 10 mg/dL (7-18); CALCIUM 8.2 mg/dL (8.5-10.1); CARBON DIOXIDE 26.1 mmol/L (21-32); CHLORIDE 102 mmol/L (98-107); COR CA(FOR HYPOALB) 9.2 mg/dL (8.5-10.1); COR NA(FOR HYPERGLY) 139 mmol/L (136-145); CREATININE 0.62 mg/dL (0.55-1.02); SODIUM 136 mmol/L (136-145); TOTAL PROTEIN 6.2 g/dL (6.4-8.2); eGFR NON BLACK RACES > 60 (>60)
[2018-04-01 07:12] LABS: BAND NEUTROPHILS % 3 % (0-10); PLATELET MORPHOLOGY COMMENT NORMAL (NORMAL)
--- NOTE | 2018-04-01 07:14 | RAD ---
HISTORY: Shortness of breath Study: Chest AP portable Comparison: 03/31/2018 Findings: The heart is within normal limits in size. The trudy are normal. Diffuse chronic interstitial lung disease is present not significantly different from the prior examination. No definite alveolar infiltrates are identified. A small left pleural effusion may be present. The bony thorax is unremarkable. IMPRESSION: No definite residual alveolar infiltrates Diffuse chronic interstitial lung changes, stable Suspect small left pleural effusion Reported By:
[2018-04-01] MEDS: MUCOMYST 20% 200 MG/ML NEB SCH ×4 (08:46→20:17)
[2018-04-01] MEDS: PULMICORT NEB TX 0.5 MG NEB SCH ×2 (08:46→20:18)
[2018-04-01] MEDS: LEVAQUIN PREMIX IV 750 MG 750 MG/150 ML BAG IV SCH (09:40)
[2018-04-01] MEDS ORDERED: ZyrTEC TAB 10 MG PO PRN (11:26)
[2018-04-01] MEDS ORDERED: DILTIAZEM HCL 120 MG PO SCH (11:30)
[2018-04-01] MEDS: HumuLIN R SUBCUT PRN (11:50)
[2018-04-01] MEDS: MORPHINE SULFATE INJ 2 MG INJ IVP PRN ×2 (12:10→17:50)
[2018-04-01] MEDS ORDERED: VISTARIL PO PRN (12:15)
[2018-04-01] MEDS ORDERED: TYLENOL 325 MG TAB PO PRN (12:15)
[2018-04-01] MEDS ORDERED: PHENERGAN INJ 25 MG IV PRN (12:15)
[2018-04-01] MEDS: FOLIC ACID TAB 1 MG PO SCH (13:41)
[2018-04-01] MEDS: ELIQUIS PO SCH ×2 (13:41→21:30)
[2018-04-01] MEDS: NICOTINE PATCH TD SCH (18:24)
[2018-04-01] MEDS ORDERED: [UNRECOGNIZED DRUG - OTHER] PO SCH (21:00)
[2018-04-01] MEDS: ELAVIL PO SCH (21:30)
[2018-04-01] MEDS: RESTORIL CAP 15 MG PO SCH (21:30)
[2018-04-01] MEDS: VALIUM PO SCH (21:30)
[2018-04-01] MEDS: CARDIZEM SR 120 MG PO SCH (21:30)
[2018-04-01] MEDS: ZANAFLEX PO SCH (21:30)
[2018-04-02] MEDS: DUONEB 0.5 MG/3 MG NEB SCH ×6 (00:25→20:08)
[2018-04-02] MEDS: NS 1000 ML 1,000 ML IV SCH ×3 (03:21→21:59)
[2018-04-02] MEDS: MORPHINE SULFATE INJ 2 MG INJ IVP PRN ×3 (05:04→23:02)
[2018-04-02] MEDS: FORTAZ or TAZICEF VIAL INJ IVP SCH ×3 (05:44→21:01)
[2018-04-02] MEDS: SOLU-Medrol 40 MG VIAL IVP SCH ×3 (05:45→21:01)
[2018-04-02 06:33] LABS: BASOPHILS # (AUTO) 0.1 X10^3/uL (0.0-0.1); BASOPHILS % (AUTO) 0.4 % (0.2-1.0); HEMATOCRIT 39.9 % (36.0-47.0); HEMOGLOBIN 13.6 g/dL (12.0-16.0); LYMPHOCYTES % (AUTO) 5.4 % (21.0-51.0); MEAN CORPUSCULAR HEMOGLOBIN 33.8 pg (27.0-34.0); MEAN CORPUSCULAR HGB CONC 34.1 g/dL (33.0-35.0); MEAN CORPUSCULAR VOLUME 98.9 fL (80.0-100.0); MEAN PLATELET VOLUME 7.2 fL (7.4-11.0); MONOCYTES # (AUTO) 0.5 x10^3/uL (0.3-0.8); MONOCYTES % (AUTO) 2.8 % (0.0-13.0); NEUTROPHILS # (AUTO) 17.2 x10^3/uL (2.2-4.8); NEUTROPHILS % (AUTO) 91.4 % (42.0-75.0); PLATELET COUNT 282 X10^3/uL (150.0-450.0); RED BLOOD COUNT 4.03 X10^6/uL (3.5-5.4); RED CELL DISTRIBUTION WIDTH 13.8 % (11.6-16.5); WHITE BLOOD COUNT 18.9 X10^3/uL (3.6-10.0)
[2018-04-02 06:37] LABS: ALANINE AMINOTRANSFERASE 21 Units/L (12-78); ALBUMIN 2.6 g/dL (3.4-5.0); ALKALINE PHOSPHATASE 79 Units/L (46-116); ASPARTATE AMINO TRANSFERASE 14 Units/L (15-37); BLOOD UREA NITROGEN 11 mg/dL (7-18); CARBON DIOXIDE 28.9 mmol/L (21-32); CHLORIDE 104 mmol/L (98-107); COR CA(FOR HYPOALB) 9.1 mg/dL (8.5-10.1); COR NA(FOR HYPERGLY) 140 mmol/L (136-145); SODIUM 139 mmol/L (136-145); TOTAL PROTEIN 5.9 g/dL (6.4-8.2); eGFR NON BLACK RACES > 60 (>60)
[2018-04-02 07:19] LABS: BAND NEUTROPHILS % 12 % (0-10)
[2018-04-02 07:20] LABS: PLATELET MORPHOLOGY COMMENT NORMAL (NORMAL)
--- NOTE | 2018-04-02 07:37 | RAD ---
Examination: Portable AP chest History: SOB Comparison 04/01/2018 Findings: Continued normal heart size with stable appearance of bilateral interstitial infiltrates. Suspect small pleural fluid collections or pleural thickening. Detail limited by overlying metallic clothing artifacts. No pneumothorax seen. Impression: No interval change since 04/01/2018. The Reported By:
[2018-04-02] MEDS: CARDIZEM SR 120 MG PO SCH ×2 (08:31→20:40)
[2018-04-02] MEDS: FOLIC ACID TAB 1 MG PO SCH (08:31)
[2018-04-02] MEDS: LEVAQUIN PREMIX IV 750 MG 750 MG/150 ML BAG IV SCH (08:31)
[2018-04-02] MEDS: ELIQUIS PO SCH ×2 (08:31→20:39)
[2018-04-02] MEDS: NICOTINE PATCH TD SCH (08:31)
[2018-04-02] MEDS: ZANAFLEX PO SCH ×2 (08:31→20:39)
[2018-04-02] MEDS: ESTRATEST TAB 1.25/2.5 MG PO SCH (08:31)
[2018-04-02] MEDS: MUCOMYST 20% 200 MG/ML NEB SCH ×4 (09:45→20:08)
[2018-04-02] MEDS: PULMICORT NEB TX 0.5 MG NEB SCH ×2 (09:45→20:08)
[2018-04-02] MEDS: HumuLIN R SUBCUT PRN ×3 (11:03→21:06)
[2018-04-02 15:07] LABS: ABG HCO3 30.2 mmol/L (22-26); FRACTIONATED INSPIRED OXYGEN 42
[2018-04-02] MEDS ORDERED: MICRO K EXTEN CAP 10 MEQ PO PRN (19:56)
[2018-04-02] MEDS ORDERED: POTASSIUM CHLORIDE LIQ 20 MEQ UDC PO PRN (19:56)
[2018-04-02] MEDS ORDERED: K-RIDER 10 MEQ/NS 100 ML 10 MEQ/100 ML BAG IV PRN (19:56)
[2018-04-02] MEDS ORDERED: KLOR-CON PO PRN (19:56)
[2018-04-02] MEDS ORDERED: POTASSIUM CHL 60 MEQ/NS 0.45% 500 ML IV PRN (19:56)
[2018-04-02] MEDS ORDERED: POTASSIUM CHL 40 MEQ/NS 0.45% 500 ML IV PRN (19:56)
[2018-04-02] MEDS: ROBITUSSIN DM PO PRN (20:38)
[2018-04-02] MEDS: K-DUR TAB 20 MEQ PO PRN (20:39)
[2018-04-02] MEDS: RESTORIL CAP 15 MG PO SCH (20:40)
[2018-04-02] MEDS: VALIUM PO SCH (20:40)
[2018-04-02] MEDS: ELAVIL PO SCH (20:40)
[2018-04-02] MEDS: MAGNESIUM SULFATE 1 GRAM/100 mL PREMIX 1 GM/100 ML BAG IV PRN ×2 (20:47→22:07)
[2018-04-02] MEDS: TUSSIONEX PENNKINETIC SUSP PO PRN (20:59)
[2018-04-03] MEDS: DUONEB 0.5 MG/3 MG NEB SCH ×6 (00:50→21:34)
[2018-04-03] MEDS: NORCO 5/325 MG TAB PO PRN ×2 (00:57→20:21)
[2018-04-03] MEDS: ROBITUSSIN DM PO PRN ×3 (02:34→20:21)
[2018-04-03] MEDS: SOLU-Medrol 40 MG VIAL IVP SCH ×2 (05:04→13:10)
[2018-04-03] MEDS: FORTAZ or TAZICEF VIAL INJ IVP SCH ×3 (05:04→21:03)
[2018-04-03] MEDS: MORPHINE SULFATE INJ 2 MG INJ IVP PRN ×2 (05:04→09:17)
[2018-04-03] MEDS: NS 1000 ML 1,000 ML IV SCH ×2 (06:21→10:59)
[2018-04-03] MEDS: HumuLIN R SUBCUT PRN ×4 (06:27→20:23)
[2018-04-03 06:36] LABS: BASOPHILS % (AUTO) 0.2 % (0.2-1.0); HEMATOCRIT 39.5 % (36.0-47.0); HEMOGLOBIN 13.2 g/dL (12.0-16.0); LYMPHOCYTES # (AUTO) 0.8 X10^3/uL (1.3-2.9); MEAN CORPUSCULAR HEMOGLOBIN 33.3 pg (27.0-34.0); MEAN CORPUSCULAR HGB CONC 33.4 g/dL (33.0-35.0); MEAN CORPUSCULAR VOLUME 99.6 fL (80.0-100.0); MEAN PLATELET VOLUME 6.9 fL (7.4-11.0); MONOCYTES # (AUTO) 0.7 x10^3/uL (0.3-0.8); MONOCYTES % (AUTO) 3.9 % (0.0-13.0); NEUTROPHILS # (AUTO) 15.2 x10^3/uL (2.2-4.8); NEUTROPHILS % (AUTO) 90.9 % (42.0-75.0); PLATELET COUNT 317 X10^3/uL (150.0-450.0); RED BLOOD COUNT 3.97 X10^6/uL (3.5-5.4); WHITE BLOOD COUNT 16.7 X10^3/uL (3.6-10.0)
[2018-04-03 07:01] LABS: BAND NEUTROPHILS % 9 % (0-10); PLATELET MORPHOLOGY COMMENT NORMAL (NORMAL)
[2018-04-03 07:05] LABS: ALANINE AMINOTRANSFERASE 31 Units/L (12-78); ALBUMIN 2.5 g/dL (3.4-5.0); ALKALINE PHOSPHATASE 73 Units/L (46-116); ASPARTATE AMINO TRANSFERASE 18 Units/L (15-37); BLOOD UREA NITROGEN 17 mg/dL (7-18); CALCIUM 7.7 mg/dL (8.5-10.1); CARBON DIOXIDE 28.2 mmol/L (21-32); CHLORIDE 105 mmol/L (98-107); COR CA(FOR HYPOALB) 8.9 mg/dL (8.5-10.1); COR NA(FOR HYPERGLY) 143 mmol/L (136-145); CREATININE 0.72 mg/dL (0.55-1.02); MAGNESIUM 2.3 mg/dL (1.7-2.9); SODIUM 141 mmol/L (136-145); TOTAL PROTEIN 5.9 g/dL (6.4-8.2); eGFR NON BLACK RACES > 60 (>60)
--- NOTE | 2018-04-03 07:59 | RAD ---
HISTORY: Dyspnea, pneumonia Study: Single-view chest Comparison: April 02, 2018 and August 24, 2017 Findings: The trachea is midline. The cardiac silhouette is unremarkable. There is a background of chronic interstitial thickening with patchy left basilar opacity representing atelectasis versus pneumonia and with trace pleural effusions versus pleural thickening noted. There is no pneumothorax. A spinal epidural stimulation device is noted. IMPRESSION: Background of COPD with patchy left basilar opacity and trace basilar pleural effusions versus pleural thickening. Reported By:
[2018-04-03] MEDS: LEVAQUIN PREMIX IV 750 MG 750 MG/150 ML BAG IV SCH (09:09)
[2018-04-03] MEDS: ZANAFLEX PO SCH ×2 (09:10→20:22)
[2018-04-03] MEDS: NICOTINE PATCH TD SCH (09:10)
[2018-04-03] MEDS: CARDIZEM SR 120 MG PO SCH ×2 (09:10→20:22)
[2018-04-03] MEDS: ELIQUIS PO SCH ×2 (09:10→20:22)
[2018-04-03] MEDS: FOLIC ACID TAB 1 MG PO SCH (09:10)
[2018-04-03] MEDS: ESTRATEST TAB 1.25/2.5 MG PO SCH (09:10)
[2018-04-03] MEDS: K-DUR TAB 20 MEQ PO PRN ×2 (09:11→14:15)
[2018-04-03] MEDS: TUSSIONEX PENNKINETIC SUSP PO PRN ×2 (09:16→21:03)
[2018-04-03] MEDS: MUCOMYST 20% 200 MG/ML NEB SCH ×3 (09:38→17:04)
[2018-04-03] MEDS: PULMICORT NEB TX 0.5 MG NEB SCH ×2 (09:38→21:34)
[2018-04-03] MEDS ORDERED: MILK OF MAGNESIA PO PRN (19:29)
[2018-04-03] MEDS ORDERED: COLACE CAP 100 MG PO PRN (19:29)
--- NOTE | 2018-04-03 19:31 | PCM.PROG ---
Progress Note - Progress Note for Day of Date of Exam: 04/01/18 - Subjective Subjective: WAS ADMITTED FOR PNEUMONIA AND COPD EXACERBATION. ON ARRIVAL TO THE HOSPITAL YESTERDAY, HER OXYGEN SATURATIONS WERE NOTED TO BE IN THE 40S ON ROOM AIR. AN ABG WAS OBTAINED AND REVEALED AN OXYGEN SATURATION IN THE 70S. RESPIRATORY THERAPY PLACED PATIENT ON THE BIPAP. TODAY, SHE IS ALERT AND ORIENTED, LYING IN BED ON MORNING ROUNDS. SHE CONTINUES WITH COMPLAINTS OF SHORTNESS OF BREATH AND A PRODUCTIVE COUGH. ON EXAMINATION, HEART IS REGULAR IN RATE AND RHYTHM. BILATERAL LUNGS ARE NOTED WITH SCATTERED WHEEZING AND RHONCHI TO AUSCULTATION. SHE IS CURRENTLY UTILIZING THE NASAL CANNULA AT 3L/MIN. SHE DOES NOT APPEAR TO BE IN ANY ACUTE DISTRESS AT THIS TIME. HER VITALS THIS MORNING ARE 97.7-88-20-97%-110/59. LABS WERE OBTAINED. ABNORMAL LAB VALUES INCLUDE THE FOLLOWING: WBC DECREASED FROM 20.1 TO 15.0, GLUCOSE 220, CALCIUM 8.2, TOTAL PROTEIN 6.2, ALBUMIN 2.8. SPUTUM CULTURE PENDING. A CHEST XRAY WAS OBTAINED AND REVEALED: The heart is within normal limits in size. The trudy are normal. Diffuse chronic interstitial lung disease is present not significantly different from the prior examination. No definite alveolar infiltrates are identified. A small left pleural effusion may be present. The bony thorax is unremarkable. SHE IS CURRENTLY RECEIVING FORTAZ AND LEVAQUIN IV, SOLU-MEDROL 40MG IV Q8H, AND RESPIRATORY TREATMENTS. TODAY, WE WILL TRANSFER HER TO THE INTENSIVE CARE UNIT FOR CLOSER OBSERVATION. OTHERWISE, WE WILL CONTINUE WITH CURRENT PLAN OF CARE. WE PLAN TO FOLLOW UP WITH AM LABS AND CONTINUE TO MONITOR PATIENT. - Past Medical Family Social History Past Med/Fam/Surg Hx: No changes since H&P Allergies: Allergies gabapentin [From Gralise] Allergy (Verified 08/24/17 17:32) - Review of Systems ROS: No change since H&P - Vital Signs and I&O's Vital Signs: Temperature 99.8 F Pulse Rate [Right] 88 Pulse Rate 87 Respiratory Rate 23 Blood Pressure [Right Arm] 110/59 Blood Pressure [Left Arm] 101/60 Blood Pressure 125/67 O2 Sat by Pulse Oximetry 92 Intake and Output: Intake & Output 04/01/18 04/02/18 04/03/18 04/04/18 12:59 12:59 11:59 11:59 Intake Total 664 / 664 Output Total 1050 / 1050 Balance -386 / -386 - Physical Exam Oriented: Normal Eyes: Normal Ear: Normal Nose: Normal Throat: Normal Respiratory: Generalized, Wheezes, Rhonchi Cardiovascular: Normal. negative: S3, S4, Murmur : Normal Auscultation: Bowel Sounds: Normal Palpation: Normal Tenderness: Normal Skin: Normal Musculoskeletal: Normal Psychiatric: Normal Mood Description: Calm Affect: Normal Speech Pattern: Clear, Appropriate - Laboratory and Diagnostics Result Diagrams: 04/03/18 05:55 04/03/18 12:05 Labs: 03/31/18 18:53 Sputum - Expectorated Sputum Sputum Culture - Final Klebsiella Pneumoniae 03/31/18 18:53 Sputum - Expectorated Sputum - Final Laboratory WBC 16.7 X10^3/uL (3.6-10.0) H 04/03/18 05:55 RBC 3.97 X10^6/uL (3.5-5.4) 04/03/18 05:55 Hgb 13.2 g/dL (12.0-16.0) 04/03/18 05:55 Hct 39.5 % (36.0-47.0) 04/03/18 05:55 MCV 99.6 fL (80.0-100.0) 04/03/18 05:55 MCH 33.3 pg (27.0-34.0) 04/03/18 05:55 MCHC 33.4 g/dL (33.0-35.0) 04/03/18 05:55 RDW 14.0 % (11.6-16.5) 04/03/18 05:55 Plt Count 317 X10^3/uL (150.0-450.0) 04/03/18 05:55 Plt Count Comment Adequate (ADEQUATE) 04/03/18 05:55 MPV 6.9 fL (7.4-11.0) L 04/03/18 05:55 Neut % (Auto) 90.9 % (42.0-75.0) H 04/03/18 05:55 Lymph % (Auto) 5.0 % (21.0-51.0) L 04/03/18 05:55 [place] % (Auto) 3.9 % (0.0-13.0) 04/03/18 05:55 Eos % (Auto) 0.0 % (0.9-2.9) L 04/03/18 05:55 Baso % (Auto) 0.2 % (0.2-1.0) 04/03/18 05:55 Neut # (Auto) 15.2 x10^3/uL (2.2-4.8) H 04/03/18 05:55 Lymph # (Auto) 0.8 X10^3/uL (1.3-2.9) L 04/03/18 05:55 [place] # (Auto) 0.7 x10^3/uL (0.3-0.8) 04/03/18 05:55 Eos # (Auto) 0.0 x10^3/uL (0.0-0.2) 04/03/18 05:55 Baso # (Auto) 0.0 X10^3/uL (0.0-0.1) 04/03/18 05:55 Absolute Nucleated RBC 0.0 /100WBC 04/03/18 05:55 Total Counted 100 04/03/18 05:55 Neutrophils % (Manual) 80 % (39-76) H 04/03/18 05:55 Band Neutrophils % 9 % (0-10) 04/03/18 05:55 Lymphocytes % (Manual) 7 % (13-43) L 04/03/18 05:55 Monocytes % (Manual) 4 % (4-9) 04/03/18 05:55 Plt Morphology Comment Normal (NORMAL) 04/03/18 05:55 RBC Morphology Normal (NORMAL) 04/03/18 05:55 Sample Site Right brachial 04/02/18 14:52 ABG pH 7.380 (7.35-7.45) 04/02/18 14:52 ABG pCO2 51.0 mmHg (35.0-45.0) H* 04/02/18 14:52 ABG pO2 58.0 mmHg (80.0-100.0) L 04/02/18 14:52 ABG HCO3 30.2 mmol/L (22-26) H* 04/02/18 14:52 ABG O2 Saturation 89.0 % (90-100) L 04/02/18 14:52 ABG Base Excess 4.0 mmol/L (-2.0-2.0) H 04/02/18 14:52 Rosalio Test Na 04/02/18 14:52 A-a Gradient 178.0 mmHg 04/02/18 14:52 FiO2 42 04/02/18 14:52 Blood Gas Comments Judie well aw 04/02/18 14:52 Sodium 141 mmol/L (136-145) 04/03/18 05:55 Corrected Sodium 143 mmol/L (136-145) 04/03/18 05:55 Potassium 3.7 mmol/L (3.5-5.1) 04/03/18 12:05 Chloride 105 mmol/L (98-107) 04/03/18 05:55 Carbon Dioxide 28.2 mmol/L (21-32) 04/03/18 05:55 BUN 17 mg/dL (7-18) 04/03/18 05:55 Creatinine 0.72 mg/dL (0.55-1.02) 04/03/18 05:55 Est GFR (MDRD) Af Amer > 60 (>60) 04/03/18 05:55 Est GFR (MDRD) Non-Af > 60 (>60) 04/03/18 05:55 Glucose 191 mg/dL (65-99) H 04/03/18 05:55 POC Glucose (mg/dL) 152 mg/dL (65-99) H 04/03/18 16:11 Calcium 7.7 mg/dL (8.5-10.1) L 04/03/18 05:55 Corrected Calcium 8.9 mg/dL (8.5-10.1) 04/03/18 05:55 Magnesium 2.3 mg/dL (1.7-2.9) 04/03/18 05:55 Total Bilirubin 0.20 mg/dL (0.2-1.0) 04/03/18 05:55 AST 18 Units/L (15-37) 04/03/18 05:55 ALT 31 Units/L (12-78) 04/03/18 05:55 Alkaline Phosphatase 73 Units/L (46-116) 04/03/18 05:55 Total Protein 5.9 g/dL (6.4-8.2) L 04/03/18 05:55 Albumin 2.5 g/dL (3.4-5.0) L 04/03/18 05:55 Globulin 3.4 g/dL (2.5-4.5) 04/03/18 05:55 Albumin/Globulin Ratio 0.7 Ratio (1.1-2.1) L 04/03/18 05:55 - Plan (1) Pneumonia Status: Acute Qualifiers: Pneumonia type: due to unspecified organism Laterality: bilateral Lung location: unspecified part of lung Qualified Code(s): J18.9 - Pneumonia, unspecified organism Plan: IV FORTAZ, IV LEVAQUIN, SOLU-MEDROL 40MG IV Q8H, RESPIRATORY TREATMENTS, CONTINUE TO MONITOR (2) COPD with exacerbation Status: Acute Plan: SOLU-MEDROL 40MG IV Q8H PRN, RESPIRATORY TREATMENTS, SUPPLEMENTAL OXYGEN, CONTINUE TO MONITOR
[2018-04-03] MEDS: VALIUM PO SCH (20:22)
[2018-04-03] MEDS: RESTORIL CAP 15 MG PO SCH (20:22)
[2018-04-03] MEDS: ELAVIL PO SCH (20:23)
[2018-04-04] MEDS: DUONEB 0.5 MG/3 MG NEB SCH ×6 (00:34→21:38)
[2018-04-04] MEDS: NS 1000 ML 1,000 ML IV SCH ×3 (02:26→13:29)
[2018-04-04] MEDS: MORPHINE SULFATE INJ 2 MG INJ IVP PRN ×2 (03:48→13:29)
[2018-04-04] MEDS: FORTAZ or TAZICEF VIAL INJ IVP SCH ×3 (05:16→21:13)
[2018-04-04 05:28] LABS: ABG HCO3 29.4 mmol/L (22-26); FRACTIONATED INSPIRED OXYGEN 60
[2018-04-04 05:44] LABS: BASOPHILS % (AUTO) 0.4 % (0.2-1.0); HEMATOCRIT 40.2 % (36.0-47.0); HEMOGLOBIN 13.4 g/dL (12.0-16.0); LYMPHOCYTES # (AUTO) 0.7 X10^3/uL (1.3-2.9); LYMPHOCYTES % (AUTO) 5.7 % (21.0-51.0); MEAN CORPUSCULAR HEMOGLOBIN 33.2 pg (27.0-34.0); MEAN CORPUSCULAR HGB CONC 33.3 g/dL (33.0-35.0); MEAN CORPUSCULAR VOLUME 99.7 fL (80.0-100.0); MEAN PLATELET VOLUME 6.7 fL (7.4-11.0); MONOCYTES # (AUTO) 0.4 x10^3/uL (0.3-0.8); MONOCYTES % (AUTO) 3.5 % (0.0-13.0); NEUTROPHILS # (AUTO) 10.6 x10^3/uL (2.2-4.8); NEUTROPHILS % (AUTO) 90.4 % (42.0-75.0); PLATELET COUNT 348 X10^3/uL (150.0-450.0); RED BLOOD COUNT 4.04 X10^6/uL (3.5-5.4); RED CELL DISTRIBUTION WIDTH 14.2 % (11.6-16.5); WHITE BLOOD COUNT 11.8 X10^3/uL (3.6-10.0)
[2018-04-04 05:54] LABS: ALANINE AMINOTRANSFERASE 57 Units/L (12-78); ALBUMIN 2.4 g/dL (3.4-5.0); ALKALINE PHOSPHATASE 67 Units/L (46-116); ASPARTATE AMINO TRANSFERASE 25 Units/L (15-37); BLOOD UREA NITROGEN 21 mg/dL (7-18); CALCIUM 7.4 mg/dL (8.5-10.1); CARBON DIOXIDE 26.7 mmol/L (21-32); CHLORIDE 106 mmol/L (98-107); COR CA(FOR HYPOALB) 8.7 mg/dL (8.5-10.1); COR NA(FOR HYPERGLY) 143 mmol/L (136-145); CREATININE 0.74 mg/dL (0.55-1.02); SODIUM 140 mmol/L (136-145); TOTAL PROTEIN 5.6 g/dL (6.4-8.2); eGFR NON BLACK RACES > 60 (>60)
[2018-04-04] MEDS: ROBITUSSIN DM PO PRN ×3 (06:11→20:43)
[2018-04-04] MEDS: HumuLIN R SUBCUT PRN ×3 (06:11→20:45)
[2018-04-04 06:16] LABS: BAND NEUTROPHILS % 3 % (0-10); PLATELET MORPHOLOGY COMMENT NORMAL (NORMAL)
--- NOTE | 2018-04-04 06:46 | RAD ---
HISTORY: Shortness of breath Study: Single-view chest Comparison: 04/03/2018. Findings: Trachea is midline. Heart size is normal. There is again hyperinflation of the lungs with increased interstitial markings. Improvement in aeration is noted in the left lung base with increasing markings in the right lung base findings likely indicate no significant interval improvement. No dense consolidation is seen. There is no evidence of pneumothorax. A tiny right pleural effusion may be present. Osseous structures are intact. Spinal epidural stimulating electrodes are again seen in the mid thoracic spine region. IMPRESSION: Findings likely indicating COPD with some superimposed interstitial pneumonia in the lung bases. The pattern appears to be changing without significant overall improvement. Reported By:
[2018-04-04] MEDS: ESTRATEST TAB 1.25/2.5 MG PO SCH (08:07)
[2018-04-04] MEDS: ELIQUIS PO SCH ×2 (08:07→20:43)
[2018-04-04] MEDS: K-DUR TAB 20 MEQ PO PRN (08:07)
[2018-04-04] MEDS: NICOTINE PATCH TD SCH (08:07)
[2018-04-04] MEDS: CARDIZEM SR 120 MG PO SCH ×2 (08:08→20:43)
[2018-04-04] MEDS: LEVAQUIN PREMIX IV 750 MG 750 MG/150 ML BAG IV SCH (08:08)
[2018-04-04] MEDS: ZANAFLEX PO SCH ×2 (08:08→20:44)
[2018-04-04] MEDS: FOLIC ACID TAB 1 MG PO SCH (08:08)
[2018-04-04] MEDS: PULMICORT NEB TX 0.5 MG NEB SCH ×2 (09:23→21:38)
[2018-04-04] MEDS: TUSSIONEX PENNKINETIC SUSP PO PRN (09:26)
--- NOTE | 2018-04-04 09:49 | PCM.PROG ---
Progress Note - Progress Note for Day of Date of Exam: 04/04/18 - Subjective Subjective: WAS ADMITTED FOR PNEUMONIA AND COPD EXACERBATION. ON ARRIVAL TO THE HOSPITAL , HER OXYGEN SATURATIONS WERE NOTED TO BE IN THE 40S ON ROOM AIR. AN ABG WAS OBTAINED AND REVEALED PH 7.330, PC02 55.0, P02 42.0, HC03 29.0, O2 SATURATION 73.0. SHE WAS PLACED ON BIPAP ON ADMISSION. SHE WAS TRANSFERRED TO THE INTENSIVE CARE UNIT FOR CLOSER OBSERVATION. TODAY, SHE IS ALERT AND ORIENTED, LYING IN BED ON MORNING ROUNDS. SHE CONTINUES WITH COMPLAINTS OF SHORTNESS OF BREATH AND A PRODUCTIVE COUGH. ON EXAMINATION, HEART IS REGULAR IN RATE AND RHYTHM. BILATERAL LUNGS ARE NOTED WITH SCATTERED WHEEZING AND RHONCHI TO AUSCULTATION. SHE IS CURRENTLY UTILIZING HIGH FLOW HEATED OXYGEN. HER VITALS THIS MORNING ARE 97.8-71-22-95%-121/63. LABS WERE OBTAINED. ABNORMAL LAB VALUES INCLUDE THE FOLLOWING: WBC 11.8, BUN 21, GLUCOSE 233, CALCIUM 7.4, TOTAL PROTEIN 5.6, ALBUMIN 2.4. AN ABG WAS OBTAINED AND REVEALED: PH 7.360, PC02 52.0, P02 87.0, HC03 29.4, 02 SATURATION 963.0 ON 60% FIO2 HIGH FLOW NASAL CANNULA. SPUTUM CULTURE REVEALED GROWTH OF KLEBSIELLA PNEUMONIAE. A CHEST XRAY WAS OBTAINED THIS MORNING AND AND REVEALED: Findings likely indicating COPD with some superimposed interstitial pneumonia in the lung bases. The pattern appears to be changing without significant overall improvement. SHE IS CURRENTLY RECEIVING LEVAQUIN IV, SOLU-MEDROL 40MG IV Q8H, AND RESPIRATORY TREATMENTS. TODAY, WE WILL CONTINUE WITH CURRENT PLAN OF CARE. WE WILL CONSULT FOR OXYGEN THERAPY AT HOME DUE TO COPD WITH HYPERCAPNIA. OTHERWISE, WE WILL CONTINUE WITH CURRENT PLAN OF CARE. WE PLAN TO FOLLOW UP WITH AM LABS AND CONTINUE TO MONITOR PATIENT. - Past Medical Family Social History Past Med/Fam/Surg Hx: No changes since H&P Allergies: Allergies gabapentin [From [facility]] Allergy (Verified 08/24/17 17:32) - Review of Systems ROS: No change since H&P - Vital Signs and I&O's Vital Signs: Temperature 97.8 F Pulse Rate [Right] 88 Pulse Rate 71 Respiratory Rate 22 Blood Pressure [Right Arm] 110/59 Blood Pressure [Left Arm] 101/60 Blood Pressure 121/60 O2 Sat by Pulse Oximetry 95 Intake and Output: Intake & Output 04/01/18 04/02/18 04/03/18 04/04/18 12:59 12:59 11:59 11:59 Intake Total 1708 / 1708 Output Total 1550 / 1550 Balance 158 / 158 - Physical Exam Oriented: Normal Eyes: Normal Ear: Normal Nose: Normal Throat: Normal Respiratory: Generalized, Wheezes, Rhonchi Cardiovascular: Normal. negative: S3, S4, Murmur : Normal Auscultation: Bowel Sounds: Normal Palpation: Normal Tenderness: Normal Skin: Normal Musculoskeletal: Normal Psychiatric: Normal Mood Description: Calm Affect: Normal Speech Pattern: Clear, Appropriate - Laboratory and Diagnostics Result Diagrams: 04/04/18 05:00 04/04/18 05:00 Labs: 03/31/18 18:53 Sputum - Expectorated Sputum Sputum Culture - Final Klebsiella Pneumoniae 03/31/18 18:53 Sputum - Expectorated Sputum - Final Laboratory WBC 11.8 X10^3/uL (3.6-10.0) H 04/04/18 05:00 RBC 4.04 X10^6/uL (3.5-5.4) 04/04/18 05:00 Hgb 13.4 g/dL (12.0-16.0) 04/04/18 05:00 Hct 40.2 % (36.0-47.0) 04/04/18 05:00 MCV 99.7 fL (80.0-100.0) 04/04/18 05:00 MCH 33.2 pg (27.0-34.0) 04/04/18 05:00 MCHC 33.3 g/dL (33.0-35.0) 04/04/18 05:00 RDW 14.2 % (11.6-16.5) 04/04/18 05:00 Plt Count 348 X10^3/uL (150.0-450.0) 04/04/18 05:00 Plt Count Comment Adequate (ADEQUATE) 04/04/18 05:00 MPV 6.7 fL (7.4-11.0) L 04/04/18 05:00 Neut % (Auto) 90.4 % (42.0-75.0) H 04/04/18 05:00 Lymph % (Auto) 5.7 % (21.0-51.0) L 04/04/18 05:00 [place] % (Auto) 3.5 % (0.0-13.0) 04/04/18 05:00 Eos % (Auto) 0.0 % (0.9-2.9) L 04/04/18 05:00 Baso % (Auto) 0.4 % (0.2-1.0) 04/04/18 05:00 Neut # (Auto) 10.6 x10^3/uL (2.2-4.8) H 04/04/18 05:00 Lymph # (Auto) 0.7 X10^3/uL (1.3-2.9) L 04/04/18 05:00 [place] # (Auto) 0.4 x10^3/uL (0.3-0.8) 04/04/18 05:00 Eos # (Auto) 0.0 x10^3/uL (0.0-0.2) 04/04/18 05:00 Baso # (Auto) 0.0 X10^3/uL (0.0-0.1) 04/04/18 05:00 Absolute Nucleated RBC 0.0 /100WBC 04/04/18 05:00 Total Counted 100 04/04/18 05:00 Neutrophils % (Manual) 88 % (39-76) H 04/04/18 05:00 Band Neutrophils % 3 % (0-10) 04/04/18 05:00 Lymphocytes % (Manual) 7 % (13-43) L 04/04/18 05:00 Monocytes % (Manual) 2 % (4-9) L 04/04/18 05:00 Plt Morphology Comment Normal (NORMAL) 04/04/18 05:00 RBC Morphology Normal (NORMAL) 04/04/18 05:00 Sample Site Rbra 04/04/18 05:15 ABG pH 7.360 (7.35-7.45) 04/04/18 05:15 ABG pCO2 52.0 mmHg (35.0-45.0) H* 04/04/18 05:15 ABG pO2 87.0 mmHg (80.0-100.0) 04/04/18 05:15 ABG HCO3 29.4 mmol/L (22-26) H 04/04/18 05:15 ABG O2 Saturation 96.0 % (90-100) 04/04/18 05:15 ABG Base Excess 3.0 mmol/L (-2.0-2.0) H 04/04/18 05:15 Rosalio Test Na 04/04/18 05:15 A-a Gradient 276.0 mmHg 04/04/18 05:15 FiO2 60 04/04/18 05:15 Blood Gas Comments Judie abg well-mtf 04/04/18 05:15 Sodium 140 mmol/L (136-145) 04/04/18 05:00 Corrected Sodium 143 mmol/L (136-145) 04/04/18 05:00 Potassium 3.7 mmol/L (3.5-5.1) 04/04/18 05:00 Chloride 106 mmol/L (98-107) 04/04/18 05:00 Carbon Dioxide 26.7 mmol/L (21-32) 04/04/18 05:00 BUN 21 mg/dL (7-18) H 04/04/18 05:00 Creatinine 0.74 mg/dL (0.55-1.02) 04/04/18 05:00 Est GFR (MDRD) Af Amer > 60 (>60) 04/04/18 05:00 Est GFR (MDRD) Non-Af > 60 (>60) 04/04/18 05:00 Glucose 233 mg/dL (65-99) H 04/04/18 05:00 POC Glucose (mg/dL) 158 mg/dL (65-99) H 04/03/18 20:02 Calcium 7.4 mg/dL (8.5-10.1) L 04/04/18 05:00 Corrected Calcium 8.7 mg/dL (8.5-10.1) 04/04/18 05:00 Magnesium 2.3 mg/dL (1.7-2.9) 04/03/18 05:55 Total Bilirubin 0.20 mg/dL (0.2-1.0) 04/04/18 05:00 AST 25 Units/L (15-37) 04/04/18 05:00 ALT 57 Units/L (12-78) 04/04/18 05:00 Alkaline Phosphatase 67 Units/L (46-116) 04/04/18 05:00 Total Protein 5.6 g/dL (6.4-8.2) L 04/04/18 05:00 Albumin 2.4 g/dL (3.4-5.0) L 04/04/18 05:00 Globulin 3.2 g/dL (2.5-4.5) 04/04/18 05:00 Albumin/Globulin Ratio 0.8 Ratio (1.1-2.1) L 04/04/18 05:00 - Plan (1) Pneumonia Status: Acute Qualifiers: Pneumonia type: due to unspecified organism Laterality: bilateral Lung location: unspecified part of lung Qualified Code(s): J18.9 - Pneumonia, unspecified organism Plan: IV FORTAZ, IV LEVAQUIN, SOLU-MEDROL 40MG IV Q8H, RESPIRATORY TREATMENTS, CONTINUE TO MONITOR (2) COPD with exacerbation Status: Acute Plan: SOLU-MEDROL 40MG IV Q8H PRN, RESPIRATORY TREATMENTS, SUPPLEMENTAL OXYGEN, CONTINUE TO MONITOR (3) Respiratory failure with hypoxia and hypercapnia Status: Acute Qualifiers: Chronicity: acute on chronic Qualified Code(s): J96.21 - Acute and chronic respiratory failure with hypoxia; J96.22 - Acute and chronic respiratory failure with hypercapnia Plan: SUPPLEMENTAL OXYGEN, RESPIRATORY TREATMENTS, CONTINUE TO MONITOR
[2018-04-04] MEDS: SOLU-Medrol 40 MG VIAL IVP SCH ×3 (09:51→21:13)
--- NOTE | 2018-04-04 10:18 | DR.UPDATE ---
H&P Update History and Physical Update: WAS SEEN IN THE OFFICE TODAY FOR SHORTNESS OF BREATH AND A PRODUCTIVE COUGH. HER OXYGEN SATURATIONS WERE NOTED TO BE IN THE 60S IN THE OFFICE. WE PLANNED TO ADMIT PATIENT FOR FURTHER EVALUATION AND TREATMENT OF COPD EXACERBATION VS PNEUMONIA. A H&P WAS COMPLETED PRIOR TO ADMISSION. PATIENT HAS BEEN SEEN AND EXAMINED WITH NO CHANGES NOTED TO H&P. Changes noted: NO Yes with the following:
[2018-04-04 16:28] LABS: RSV AG DETECTION NEGATIVE (NEGATIVE)
[2018-04-04] MEDS: MUCOMYST 20% 200 MG/ML NEB SCH ×2 (17:08→21:38)
[2018-04-04] MEDS: RESTORIL CAP 15 MG PO SCH (20:43)
[2018-04-04] MEDS: ELAVIL PO SCH (20:43)
[2018-04-04] MEDS: VALIUM PO SCH (20:44)
[2018-04-04] MEDS: NORCO 5/325 MG TAB PO PRN (20:44)
[2018-04-05] MEDS: DUONEB 0.5 MG/3 MG NEB SCH ×6 (01:00→20:20)
[2018-04-05] MEDS: MORPHINE SULFATE INJ 2 MG INJ IVP PRN ×3 (01:07→22:30)
[2018-04-05 04:45] LABS: ABG BASE EXCESS 5.9 mmol/L (-2.0-2.0); ABG HCO3 31.7 mmol/L (22-26)
[2018-04-05 04:47] LABS: FRACTIONATED INSPIRED OXYGEN 25
[2018-04-05] MEDS: SOLU-Medrol 40 MG VIAL IVP SCH ×3 (05:12→20:59)
[2018-04-05] MEDS: FORTAZ or TAZICEF VIAL INJ IVP SCH ×3 (05:12→20:59)
[2018-04-05] MEDS: NORCO 5/325 MG TAB PO PRN (05:16)
[2018-04-05 06:23] LABS: BASOPHILS % (AUTO) 0.3 % (0.2-1.0); HEMATOCRIT 44.3 % (36.0-47.0); LYMPHOCYTES # (AUTO) 0.6 X10^3/uL (1.3-2.9); LYMPHOCYTES % (AUTO) 5.3 % (21.0-51.0); MEAN CORPUSCULAR HEMOGLOBIN 33.6 pg (27.0-34.0); MEAN CORPUSCULAR HGB CONC 33.9 g/dL (33.0-35.0); MEAN CORPUSCULAR VOLUME 99.1 fL (80.0-100.0); MEAN PLATELET VOLUME 6.7 fL (7.4-11.0); MONOCYTES # (AUTO) 0.5 x10^3/uL (0.3-0.8); MONOCYTES % (AUTO) 5.1 % (0.0-13.0); NEUTROPHILS # (AUTO) 9.6 x10^3/uL (2.2-4.8); NEUTROPHILS % (AUTO) 89.3 % (42.0-75.0); PLATELET COUNT 403 X10^3/uL (150.0-450.0); RED BLOOD COUNT 4.47 X10^6/uL (3.5-5.4); RED CELL DISTRIBUTION WIDTH 13.6 % (11.6-16.5); WHITE BLOOD COUNT 10.7 X10^3/uL (3.6-10.0)
[2018-04-05 07:05] LABS: ALANINE AMINOTRANSFERASE 65 Units/L (12-78); ALBUMIN 2.6 g/dL (3.4-5.0); ALKALINE PHOSPHATASE 68 Units/L (46-116); ASPARTATE AMINO TRANSFERASE 24 Units/L (15-37); BLOOD UREA NITROGEN 21 mg/dL (7-18); CALCIUM 7.8 mg/dL (8.5-10.1); CARBON DIOXIDE 28.7 mmol/L (21-32); CHLORIDE 104 mmol/L (98-107); COR CA(FOR HYPOALB) 8.9 mg/dL (8.5-10.1); COR NA(FOR HYPERGLY) 141 mmol/L (136-145); CREATININE 0.67 mg/dL (0.55-1.02); SODIUM 140 mmol/L (136-145); TOTAL PROTEIN 6.1 g/dL (6.4-8.2); eGFR NON BLACK RACES > 60 (>60)
[2018-04-05 07:07] LABS: PLATELET MORPHOLOGY COMMENT NORMAL (NORMAL)
--- NOTE | 2018-04-05 07:21 | RAD ---
HISTORY: Shortness of breath Study: Chest AP portable Comparison: 04/04/2018 Findings: The heart is within normal limits in size. No congestive heart failure is noted. The lungs are well inflated. Diffuse interstitial lung changes are present most prominent in the lower lobes bilaterally. They are unchanged in degree or distribution from the prior examination. These could be chronic, acute, or combination. The bony thorax is unremarkable. There is a spinal cord stimulator at the mid thoracic level. IMPRESSION: No significant change from the prior examination Reported By:
[2018-04-05] MEDS: NS 1000 ML 1,000 ML IV SCH ×2 (08:29→14:04)
[2018-04-05] MEDS: CARDIZEM SR 120 MG PO SCH ×2 (08:32→20:49)
[2018-04-05] MEDS: ESTRATEST TAB 1.25/2.5 MG PO SCH (08:32)
[2018-04-05] MEDS: FOLIC ACID TAB 1 MG PO SCH (08:32)
[2018-04-05] MEDS: TUSSIONEX PENNKINETIC SUSP PO PRN ×2 (08:33→20:58)
[2018-04-05] MEDS: ELIQUIS PO SCH ×2 (08:33→20:49)
[2018-04-05] MEDS: LEVAQUIN PREMIX IV 750 MG 750 MG/150 ML BAG IV SCH (08:33)
[2018-04-05] MEDS: K-DUR TAB 20 MEQ PO PRN (08:33)
[2018-04-05] MEDS: ZANAFLEX PO SCH ×2 (08:33→20:49)
[2018-04-05] MEDS: NICOTINE PATCH TD SCH (08:33)
[2018-04-05] MEDS: PULMICORT NEB TX 0.5 MG NEB SCH ×2 (09:18→20:21)
[2018-04-05] MEDS: MUCOMYST 20% 200 MG/ML NEB SCH ×4 (09:19→20:21)
[2018-04-05] MEDS: ROBITUSSIN DM PO PRN ×2 (13:17→16:58)
--- NOTE | 2018-04-05 14:16 | CT ---
CT CHEST WITH IV CONTRAST HISTORY: Pneumonia and shortness of breath Comparison: Chest x-ray 04/05/2018 Technique: Multiple axial images of the chest were obtained from the thoracic inlet to the upper abdomen after the administration of IV contrast.Dose reduction techniques including Automated Exposure Control (AEC) and adjustment of mA and kV were utlized. Findings: The heart is normal in size. No pericardial effusion. No suspicious mediastinal or axillary lymph nodes. Although not optimized to detect pulmonary embolism, no large central pulmonary emboli are seen. No focal consolidations, pleural effusions or pneumothorax. Severe emphysema. Bibasilar small volume consolidations, worse on the right with associated volume loss. Airways are patent. No suspicious pulmonary nodules or masses. Limited images of the upper abdomen are unremarkable. No aggressive osseous lesions. IMPRESSION: 1. Bibasilar airspace consolidations, worse on the right. There appears to be a component of atelectasis as well however superimposed infection is suggested by the imaging findings. 2. Emphysema and fibrosis of the lungs. Reported By:
[2018-04-05] MEDS: HumuLIN R SUBCUT PRN (16:40)
[2018-04-05] MEDS: LASIX IVP SCH (17:16)
--- NOTE | 2018-04-05 20:07 | PCM.PROG ---
Progress Note - Progress Note for Day of Date of Exam: 04/05/18 - Subjective Subjective: WAS ADMITTED FOR PNEUMONIA AND COPD EXACERBATION. TODAY, SHE IS ALERT AND ORIENTED, LYING IN BED ON MORNING ROUNDS. SHE CONTINUES WITH COMPLAINTS OF SHORTNESS OF BREATH AND A PRODUCTIVE COUGH. ON EXAMINATION, HEART IS REGULAR IN RATE AND RHYTHM. BILATERAL LUNGS ARE NOTED WITH SCATTERED WHEEZING AND RHONCHI TO AUSCULTATION. SHE IS CURRENTLY UTILIZING HIGH FLOW HEATED OXYGEN. HER VITALS THIS MORNING ARE 98.7-72-44-90NC-121/58. LABS WERE OBTAINED. ABNORMAL LAB VALUES INCLUDE THE FOLLOWING: WBC 10.7, BUN 21, GLUCOSE 131, CALCIUM 7.8, TOTAL PROTEIN 6.1, ALBUMIN 2.6. AN ABG WAS OBTAINED AND REVEALED: PH 7.410, PC02 50.0, P02 48.0, HC03 31.7, 02 SATURATION 84 ON 25% FIO2 HIGH FLOW NASAL CANNULA. SPUTUM CULTURE REVEALED GROWTH OF KLEBSIELLA PNEUMONIAE. A CHEST XRAY WAS OBTAINED THIS MORNING AND AND REVEALED NO SIGNIFICANT CHANGE FROM THE PRIOR EXAMINATION. SHE IS CURRENTLY RECEIVING LEVAQUIN IV, SOLU-MEDROL 40MG IV Q8H, AND RESPIRATORY TREATMENTS. TODAY, WE WILL CONTINUE WITH CURRENT PLAN OF CARE. WE WILL CONSULT FOR OXYGEN THERAPY AT HOME DUE TO COPD WITH HYPERCAPNIA. WE WILL OBTAIN AN ECHO AND CHEST CT WITH CONTRAST TODAY. OTHERWISE, WE WILL CONTINUE WITH CURRENT PLAN OF CARE. WE PLAN TO FOLLOW UP WITH AM LABS AND CONTINUE TO MONITOR PATIENT. - Past Medical Family Social History Past Med/Fam/Surg Hx: No changes since H&P Allergies: Allergies gabapentin [From Gralise] Allergy (Verified 08/24/17 17:32) - Review of Systems ROS: No change since H&P - Vital Signs and I&O's Vital Signs: Temperature 99.4 F Pulse Rate [Right] 88 Pulse Rate 92 Respiratory Rate 24 Blood Pressure [Right Arm] 110/59 Blood Pressure [Left Arm] 101/60 Blood Pressure 145/74 O2 Sat by Pulse Oximetry 92 Intake and Output: Intake & Output 04/03/18 04/04/18 04/05/18 04/06/18 11:59 11:59 11:59 11:59 Intake Total 1708 / 1708 2774 / 2774 630 / 630 Output Total 1550 / 1550 1600 / 1600 2550 / 2550 Balance 158 / 158 1174 / 1174 -1920 / -1920 - Physical Exam Oriented: Normal Eyes: Normal Ear: Normal Nose: Normal Throat: Normal Respiratory: Generalized, Wheezes, Rhonchi Cardiovascular: Normal. negative: S3, S4, Murmur : Normal Auscultation: Bowel Sounds: Normal Palpation: Normal Tenderness: Normal Skin: Normal Musculoskeletal: Normal Psychiatric: Normal Mood Description: Calm Affect: Normal Speech Pattern: Clear, Appropriate - Laboratory and Diagnostics Result Diagrams: 04/05/18 05:31 04/05/18 05:31 Labs: 03/31/18 18:53 Sputum - Expectorated Sputum Sputum Culture - Final Klebsiella Pneumoniae 03/31/18 18:53 Sputum - Expectorated Sputum - Final Laboratory WBC 10.7 X10^3/uL (3.6-10.0) H 04/05/18 05:31 RBC 4.47 X10^6/uL (3.5-5.4) 04/05/18 05:31 Hgb 15.0 g/dL (12.0-16.0) 04/05/18 05:31 Hct 44.3 % (36.0-47.0) 04/05/18 05:31 MCV 99.1 fL (80.0-100.0) 04/05/18 05:31 MCH 33.6 pg (27.0-34.0) 04/05/18 05:31 MCHC 33.9 g/dL (33.0-35.0) 04/05/18 05:31 RDW 13.6 % (11.6-16.5) 04/05/18 05:31 Plt Count 403 X10^3/uL (150.0-450.0) 04/05/18 05:31 Plt Count Comment Adequate (ADEQUATE) 04/05/18 05:31 MPV 6.7 fL (7.4-11.0) L 04/05/18 05:31 Neut % (Auto) 89.3 % (42.0-75.0) H 04/05/18 05:31 Lymph % (Auto) 5.3 % (21.0-51.0) L 04/05/18 05:31 [place] % (Auto) 5.1 % (0.0-13.0) 04/05/18 05:31 Eos % (Auto) 0.0 % (0.9-2.9) L 04/05/18 05:31 Baso % (Auto) 0.3 % (0.2-1.0) 04/05/18 05:31 Neut # (Auto) 9.6 x10^3/uL (2.2-4.8) H 04/05/18 05:31 Lymph # (Auto) 0.6 X10^3/uL (1.3-2.9) L 04/05/18 05:31 [place] # (Auto) 0.5 x10^3/uL (0.3-0.8) 04/05/18 05:31 Eos # (Auto) 0.0 x10^3/uL (0.0-0.2) 04/05/18 05:31 Baso # (Auto) 0.0 X10^3/uL (0.0-0.1) 04/05/18 05:31 Absolute Nucleated RBC 0.0 /100WBC 04/05/18 05:31 Total Counted 100 04/05/18 05:31 Neutrophils % (Manual) 90 % (39-76) H 04/05/18 05:31 Band Neutrophils % 3 % (0-10) 04/04/18 05:00 Lymphocytes % (Manual) 8 % (13-43) L 04/05/18 05:31 Monocytes % (Manual) 2 % (4-9) L 04/05/18 05:31 Plt Morphology Comment Normal (NORMAL) 04/05/18 05:31 RBC Morphology Normal (NORMAL) 04/05/18 05:[address] [facility] 04/05/18 04:32 ABG pH 7.410 (7.35-7.45) 04/05/18 04:32 ABG pCO2 50.0 mmHg (35.0-45.0) H 04/05/18 04:32 ABG pO2 48.0 mmHg (80.0-100.0) L* 04/05/18 04:32 ABG HCO3 31.7 mmol/L (22-26) H* 04/05/18 04:32 ABG O2 Saturation 84.0 % (90-100) L* 04/05/18 04:32 ABG Base Excess 5.9 mmol/L (-2.0-2.0) H 04/05/18 04:32 Rosalio Test Na 04/05/18 04:32 A-a Gradient 68.0 mmHg 04/05/18 04:32 FiO2 25 04/05/18 04:32 Blood Gas Comments Judie abg well-mtf 04/05/18 04:32 Sodium 140 mmol/L (136-145) 04/05/18 05:31 Corrected Sodium 141 mmol/L (136-145) 04/05/18 05:31 Potassium 3.8 mmol/L (3.5-5.1) 04/05/18 05:31 Chloride 104 mmol/L (98-107) 04/05/18 05:31 Carbon Dioxide 28.7 mmol/L (21-32) 04/05/18 05:31 BUN 21 mg/dL (7-18) H 04/05/18 05:31 Creatinine 0.67 mg/dL (0.55-1.02) 04/05/18 05:31 Est GFR (MDRD) Af Amer > 60 (>60) 04/05/18 05:31 Est GFR (MDRD) Non-Af > 60 (>60) 04/05/18 05:31 Glucose 131 mg/dL (65-99) H 04/05/18 05:31 POC Glucose (mg/dL) 161 mg/dL (65-99) H 04/05/18 16:35 Calcium 7.8 mg/dL (8.5-10.1) L 04/05/18 05:31 Corrected Calcium 8.9 mg/dL (8.5-10.1) 04/05/18 05:31 Magnesium 2.3 mg/dL (1.7-2.9) 04/03/18 05:55 Total Bilirubin 0.20 mg/dL (0.2-1.0) 04/05/18 05:31 AST 24 Units/L (15-37) 04/05/18 05:31 ALT 65 Units/L (12-78) 04/05/18 05:31 Alkaline Phosphatase 68 Units/L (46-116) 04/05/18 05:31 Total Protein 6.1 g/dL (6.4-8.2) L 04/05/18 05:31 Albumin 2.6 g/dL (3.4-5.0) L 04/05/18 05:31 Globulin 3.5 g/dL (2.5-4.5) 04/05/18 05:31 Albumin/Globulin Ratio 0.7 Ratio (1.1-2.1) L 04/05/18 05:31 RSV Nasal Swab Negative (NEGATIVE) 04/04/18 16:01 - Plan (1) Pneumonia Status: Acute Qualifiers: Pneumonia type: due to unspecified organism Laterality: bilateral Lung location: unspecified part of lung Qualified Code(s): J18.9 - Pneumonia, unspecified organism Plan: CHEST CT, IV FORTAZ, IV LEVAQUIN, SOLU-MEDROL 40MG IV Q8H, RESPIRATORY TREATMENTS, CONTINUE TO MONITOR (2) COPD with exacerbation Status: Acute Plan: SOLU-MEDROL 40MG IV Q8H PRN, RESPIRATORY TREATMENTS, SUPPLEMENTAL OXYGEN, CONTINUE TO MONITOR (3) Respiratory failure with hypoxia and hypercapnia Status: Acute Qualifiers: Chronicity: acute on chronic Qualified Code(s): J96.21 - Acute and chronic respiratory failure with hypoxia; J96.22 - Acute and chronic respiratory failure with hypercapnia Plan: OBTAIN CHEST CT, ECHO, SUPPLEMENTAL OXYGEN, RESPIRATORY TREATMENTS, CONTINUE TO MONITOR
[2018-04-05] MEDS: RESTORIL CAP 15 MG PO SCH (20:49)
[2018-04-05] MEDS: VALIUM PO SCH (20:49)
[2018-04-05] MEDS: ELAVIL PO SCH (20:50)
[2018-04-06] MEDS: DUONEB 0.5 MG/3 MG NEB SCH ×6 (01:14→21:24)
[2018-04-06] MEDS: MORPHINE SULFATE INJ 2 MG INJ IVP PRN ×4 (04:09→22:24)
[2018-04-06] MEDS: NS 1000 ML 1,000 ML IV SCH ×2 (04:25→17:26)
[2018-04-06 05:15] LABS: ABG BASE EXCESS 10.7 mmol/L (-2.0-2.0)
[2018-04-06 05:16] LABS: ABG HCO3 35.7 mmol/L (22-26); FRACTIONATED INSPIRED OXYGEN 46
[2018-04-06] MEDS: FORTAZ or TAZICEF VIAL INJ IVP SCH ×3 (06:04→22:12)
[2018-04-06] MEDS: SOLU-Medrol 40 MG VIAL IVP SCH ×3 (06:04→22:12)
[2018-04-06] MEDS: LASIX IVP SCH ×2 (06:04→22:12)
[2018-04-06 06:13] LABS: ALANINE AMINOTRANSFERASE 55 Units/L (12-78); ALBUMIN 2.4 g/dL (3.4-5.0); ALKALINE PHOSPHATASE 57 Units/L (46-116); ASPARTATE AMINO TRANSFERASE 19 Units/L (15-37); BLOOD UREA NITROGEN 21 mg/dL (7-18); CALCIUM 7.6 mg/dL (8.5-10.1); CHLORIDE 102 mmol/L (98-107); COR CA(FOR HYPOALB) 8.9 mg/dL (8.5-10.1); COR NA(FOR HYPERGLY) 139 mmol/L (136-145); CREATININE 0.64 mg/dL (0.55-1.02); SODIUM 138 mmol/L (136-145); TOTAL PROTEIN 5.5 g/dL (6.4-8.2); eGFR NON BLACK RACES > 60 (>60)
[2018-04-06 06:17] LABS: BASOPHILS % (AUTO) 0 % (0.2-1.0); HEMATOCRIT 44.1 % (36.0-47.0); HEMOGLOBIN 15.3 g/dL (12.0-16.0); LYMPHOCYTES # (AUTO) 0.6 X10^3/uL (1.3-2.9); LYMPHOCYTES % (AUTO) 5.3 % (21.0-51.0); MEAN CORPUSCULAR HEMOGLOBIN 33.7 pg (27.0-34.0); MEAN CORPUSCULAR HGB CONC 34.6 g/dL (33.0-35.0); MEAN CORPUSCULAR VOLUME 97.5 fL (80.0-100.0); MEAN PLATELET VOLUME 6.5 fL (7.4-11.0); MONOCYTES # (AUTO) 0.5 x10^3/uL (0.3-0.8); MONOCYTES % (AUTO) 4.9 % (0.0-13.0); NEUTROPHILS # (AUTO) 9.6 x10^3/uL (2.2-4.8); NEUTROPHILS % (AUTO) 89.8 % (42.0-75.0); PLATELET COUNT 409 X10^3/uL (150.0-450.0); RED BLOOD COUNT 4.53 X10^6/uL (3.5-5.4); RED CELL DISTRIBUTION WIDTH 13.5 % (11.6-16.5); WHITE BLOOD COUNT 10.7 X10^3/uL (3.6-10.0)
--- NOTE | 2018-04-06 06:24 | RAD ---
HISTORY: Shortness of breath Study: Single-view chest Comparison: 04/05/2018. Findings: Trachea is midline. Heart size is normal. Increased interstitial markings are present involving both lungs with improved aeration in the lung bases. Small right pleural effusion may be present. There is no evidence of pneumothorax. Spine stimulating electrodes are noted in the midthoracic spinal canal region. Osseous structures are intact. IMPRESSION: Diffuse interstitial increased lung markings bilaterally with improved aeration in the lung bases. Small right pleural effusion is suspected. Reported By:
[2018-04-06] MEDS: K-DUR TAB 20 MEQ PO PRN (06:51)
[2018-04-06] MEDS: FOLIC ACID TAB 1 MG PO SCH (08:07)
[2018-04-06] MEDS: ZANAFLEX PO SCH ×2 (08:07→22:11)
[2018-04-06] MEDS: ELIQUIS PO SCH ×2 (08:07→22:11)
[2018-04-06] MEDS: ESTRATEST TAB 1.25/2.5 MG PO SCH (08:07)
[2018-04-06] MEDS: CARDIZEM SR 120 MG PO SCH ×2 (08:07→22:11)
[2018-04-06] MEDS: NICOTINE PATCH TD SCH (08:07)
[2018-04-06] MEDS: LEVAQUIN PREMIX IV 750 MG 750 MG/150 ML BAG IV SCH (08:08)
[2018-04-06] MEDS: ROBITUSSIN DM PO PRN ×2 (08:15→22:13)
[2018-04-06] MEDS: PULMICORT NEB TX 0.5 MG NEB SCH ×2 (09:03→21:24)
[2018-04-06] MEDS: MUCOMYST 20% 200 MG/ML NEB SCH ×3 (09:03→21:24)
[2018-04-06] MEDS: TUSSIONEX PENNKINETIC SUSP PO PRN (15:04)
[2018-04-06] MEDS: RESTORIL CAP 15 MG PO SCH (22:11)
[2018-04-06] MEDS: ELAVIL PO SCH (22:11)
[2018-04-06] MEDS: VALIUM PO SCH (22:11)
[2018-04-06] MEDS ORDERED: NEOSPORIN OINT ONE (23:26)
[2018-04-07] MEDS: DUONEB 0.5 MG/3 MG NEB SCH ×6 (01:10→21:36)
[2018-04-07 05:05] LABS: BASOPHILS % (AUTO) 0.2 % (0.2-1.0); HEMATOCRIT 42.5 % (36.0-47.0); HEMOGLOBIN 14.5 g/dL (12.0-16.0); LYMPHOCYTES # (AUTO) 0.3 X10^3/uL (1.3-2.9); MEAN PLATELET VOLUME 6.1 fL (7.4-11.0); MONOCYTES # (AUTO) 0.5 x10^3/uL (0.3-0.8); MONOCYTES % (AUTO) 4.4 % (0.0-13.0); NEUTROPHILS # (AUTO) 10.8 x10^3/uL (2.2-4.8); NEUTROPHILS % (AUTO) 92.4 % (42.0-75.0); PLATELET COUNT 378 X10^3/uL (150.0-450.0); RED BLOOD COUNT 4.39 X10^6/uL (3.5-5.4); RED CELL DISTRIBUTION WIDTH 13.3 % (11.6-16.5); WHITE BLOOD COUNT 11.7 X10^3/uL (3.6-10.0)
[2018-04-07 05:17] LABS: ALANINE AMINOTRANSFERASE 54 Units/L (12-78); ALBUMIN 2.5 g/dL (3.4-5.0); ALKALINE PHOSPHATASE 56 Units/L (46-116); ASPARTATE AMINO TRANSFERASE 16 Units/L (15-37); BLOOD UREA NITROGEN 22 mg/dL (7-18); CALCIUM 7.7 mg/dL (8.5-10.1); CARBON DIOXIDE 37.1 mmol/L (21-32); CHLORIDE 101 mmol/L (98-107); COR CA(FOR HYPOALB) 8.9 mg/dL (8.5-10.1); COR NA(FOR HYPERGLY) 140 mmol/L (136-145); CREATININE 0.65 mg/dL (0.55-1.02); SODIUM 139 mmol/L (136-145); TOTAL PROTEIN 5.6 g/dL (6.4-8.2); eGFR NON BLACK RACES > 60 (>60)
[2018-04-07 05:43] LABS: ABG BASE EXCESS 13.3 mmol/L (-2.0-2.0)
[2018-04-07 05:44] LABS: ABG HCO3 39.6 mmol/L (22-26); FRACTIONATED INSPIRED OXYGEN 45
[2018-04-07] MEDS: FORTAZ or TAZICEF VIAL INJ IVP SCH ×3 (06:15→21:01)
[2018-04-07] MEDS: LASIX IVP SCH ×2 (06:15→17:26)
[2018-04-07] MEDS: SOLU-Medrol 40 MG VIAL IVP SCH (06:15)
[2018-04-07] MEDS: K-DUR TAB 20 MEQ PO PRN ×2 (06:15→09:40)
[2018-04-07] MEDS: NS 1000 ML 1,000 ML IV SCH ×2 (06:16→21:01)
[2018-04-07] MEDS: MORPHINE SULFATE INJ 2 MG INJ IVP PRN (06:33)
[2018-04-07 06:40] LABS: PLATELET MORPHOLOGY COMMENT NORMAL (NORMAL)
[2018-04-07] MEDS: MUCOMYST 20% 200 MG/ML NEB SCH ×5 (08:00→21:36)
[2018-04-07] MEDS: PULMICORT NEB TX 0.5 MG NEB SCH ×2 (08:01→21:36)
[2018-04-07] MEDS: ZANAFLEX PO SCH ×2 (08:08→20:59)
[2018-04-07] MEDS: TUSSIONEX PENNKINETIC SUSP PO PRN ×2 (08:08→20:59)
[2018-04-07] MEDS: ROBITUSSIN DM PO PRN ×2 (08:08→20:59)
[2018-04-07] MEDS: CARDIZEM SR 120 MG PO SCH ×2 (08:08→20:59)
[2018-04-07] MEDS: ESTRATEST TAB 1.25/2.5 MG PO SCH (08:08)
[2018-04-07] MEDS: NICOTINE PATCH TD SCH (08:09)
[2018-04-07] MEDS: LEVAQUIN PREMIX IV 750 MG 750 MG/150 ML BAG IV SCH (08:09)
[2018-04-07] MEDS: ELIQUIS PO SCH ×2 (08:09→20:59)
[2018-04-07] MEDS: FOLIC ACID TAB 1 MG PO SCH (08:09)
--- NOTE | 2018-04-07 08:33 | PCM.PROG ---
Progress Note - Progress Note for Day of Date of Exam: 04/06/18 - Subjective Subjective: WAS ADMITTED FOR PNEUMONIA AND COPD EXACERBATION. TODAY, SHE IS ALERT AND ORIENTED, LYING IN BED ON MORNING ROUNDS. SHE CONTINUES WITH COMPLAINTS OF SHORTNESS OF BREATH, PRODUCTIVE COUGH, AND LOWER EXTREMITY EDEMA. ON EXAMINATION, HEART IS REGULAR IN RATE AND RHYTHM. BILATERAL LUNGS ARE NOTED WITH SCATTERED WHEEZING AND RHONCHI TO AUSCULTATION. LOWER EXTREMITIES NOTED WITH TRACE EDEMA. SHE IS CURRENTLY UTILIZING HIGH FLOW HEATED OXYGEN. HER VITALS THIS MORNING ARE 98.2-95-25-87%NC-120/57. LABS WERE OBTAINED. ABNORMAL LAB VALUES INCLUDE THE FOLLOWING: WBC 10.7, POTASSIUM 3.4, BUN 21, GLUCOSE 123, CALCIUM 7.6, TOTAL PROTEIN 5.5, ALBUMIN 2.4. AN ABG WAS OBTAINED AND REVEALED: PH 7.480, PC02 48.0, P02 59.0, HC03 35.7, 02 SATURATION 92 ON 46% FIO2 HIGH FLOW NASAL CANNULA. SPUTUM CULTURE REVEALED GROWTH OF KLEBSIELLA PNEUMONIAE. A CHEST XRAY WAS OBTAINED THIS MORNING AND AND REVEAL: Diffuse interstitial increased lung markings bilaterally with improved aeration in the lung bases. Small right pleural effusion is suspected. A CHEST CT WAS OBTAINED YESTERDAY AND REVEALED: Bibasilar airspace consolidations, worse on the right. There appears to be a component of atelectasis as well however superimposed infection is suggested by the imaging findings. Emphysema and fibrosis of the lungs.SHE IS CURRENTLY RECEIVING LEVAQUIN IV, SOLU-MEDROL 40MG IV Q8H, AND RESPIRATORY TREATMENTS. TODAY, WE WILL GIVE LASIX 20MG IV BID AND CONTINUE WITH CURRENT PLAN OF CARE. OTHERWISE, WE PLAN TO FOLLOW UP WITH AM LABS AND CONTINUE TO MONITOR PATIENT. - Past Medical Family Social History Past Med/Fam/Surg Hx: No changes since H&P Allergies: Allergies gabapentin [From Gralise] Allergy (Verified 08/24/17 17:32) - Review of Systems ROS: No change since H&P - Vital Signs and I&O's Vital Signs: Temperature 98.2 F Pulse Rate [Right] 88 Pulse Rate 81 Respiratory Rate 17 Blood Pressure [Right Arm] 110/59 Blood Pressure [Left Arm] 101/60 Blood Pressure 127/65 O2 Sat by Pulse Oximetry 93 Intake and Output: Intake & Output 04/04/18 04/05/18 04/06/18 11/08/18 11:59 11:59 11:59 11:59 Intake Total 1708 / 1708 2774 / 2774 1580 / 1580 2040 / 2040 Output Total 1550 / 1550 1600 / 1600 2550 / 2550 3700 / 3700 Balance 158 / 158 1174 / 1174 -970 / -970 -1660 / -1660 - Physical Exam Oriented: Normal Eyes: Normal Ear: Normal Nose: Normal Throat: Normal Respiratory: Generalized, Wheezes, Rhonchi Cardiovascular: Normal. negative: S3, S4, Murmur : Normal Auscultation: Bowel Sounds: Normal Palpation: Normal Tenderness: Normal Skin: Normal Musculoskeletal: Normal Psychiatric: Normal Mood Description: Calm Affect: Normal Speech Pattern: Clear, Appropriate - Laboratory and Diagnostics Result Diagrams: 04/07/18 04:33 04/07/18 04:33 Labs: 03/31/18 18:53 Sputum - Expectorated Sputum Sputum Culture - Final Klebsiella Pneumoniae 03/31/18 18:53 Sputum - Expectorated Sputum - Final Laboratory WBC 11.7 X10^3/uL (3.6-10.0) H 04/07/18 04:33 RBC 4.39 X10^6/uL (3.5-5.4) 04/07/18 04:33 Hgb 14.5 g/dL (12.0-16.0) 04/07/18 04:33 Hct 42.5 % (36.0-47.0) 04/07/18 04:33 MCV 97.0 fL (80.0-100.0) 04/07/18 04:33 MCH 33.0 pg (27.0-34.0) 04/07/18 04:33 MCHC 34.0 g/dL (33.0-35.0) 04/07/18 04:33 RDW 13.3 % (11.6-16.5) 04/07/18 04:33 Plt Count 378 X10^3/uL (150.0-450.0) 04/07/18 04:33 Plt Count Comment Adequate (ADEQUATE) 04/07/18 04:33 MPV 6.1 fL (7.4-11.0) L 04/07/18 04:33 Neut % (Auto) 92.4 % (42.0-75.0) H 04/07/18 04:33 Lymph % (Auto) 3.0 % (21.0-51.0) L 04/07/18 04:33 [place] % (Auto) 4.4 % (0.0-13.0) 04/07/18 04:33 Eos % (Auto) 0.0 % (0.9-2.9) L 04/07/18 04:33 Baso % (Auto) 0.2 % (0.2-1.0) 04/07/18 04:33 Neut # (Auto) 10.8 x10^3/uL (2.2-4.8) H 04/07/18 04:33 Lymph # (Auto) 0.3 X10^3/uL (1.3-2.9) L 04/07/18 04:33 [place] # (Auto) 0.5 x10^3/uL (0.3-0.8) 04/07/18 04:33 Eos # (Auto) 0.0 x10^3/uL (0.0-0.2) 04/07/18 04:33 Baso # (Auto) 0.0 X10^3/uL (0.0-0.1) 04/07/18 04:33 Absolute Nucleated RBC 0.0 /100WBC 04/07/18 04:33 Total Counted 100 04/07/18 04:33 Neutrophils % (Manual) 93 % (39-76) H 04/07/18 04:33 Band Neutrophils % 3 % (0-10) 04/04/18 05:00 Lymphocytes % (Manual) 5 % (13-43) L 04/07/18 04:33 Monocytes % (Manual) 2 % (4-9) L 04/07/18 04:33 Nucleated RBCs Cancelled 04/06/18 05:22 Atypical Lymphocytes Cancelled 04/06/18 05:22 Blast Cells Cancelled 04/06/18 05:22 Smudge Cells Cancelled 04/06/18 05:22 Toxic Granulation Cancelled 04/06/18 05:22 Dohle Bodies Cancelled 04/06/18 05:22 Jose Rods Cancelled 04/06/18 05:22 Plt Clumps, EDTA Cancelled 04/06/18 05:22 Giant Platelets Cancelled 04/06/18 05:22 Plt Morphology Comment Normal (NORMAL) 04/07/18 04:33 RBC Morphology Normal (NORMAL) 04/07/18 04:33 Dimorphic RBCs Cancelled 04/06/18 05:22 Polychromasia Cancelled 04/06/18 05:22 Hypochromasia Cancelled 04/06/18 05:22 Poikilocytosis Cancelled 04/06/18 05:22 Basophilic Stippling Cancelled 04/06/18 05:22 Anisocytosis Cancelled 04/06/18 05:22 Microcytosis Cancelled 04/06/18 05:22 Macrocytosis Cancelled 04/06/18 05:22 Spherocytes Cancelled 04/06/18 05:22 Pappenheimer Bodies Cancelled 04/06/18 05:22 Sickle Cells Cancelled 04/06/18 05:22 Target Cells Cancelled 04/06/18 05:22 Tear Drop Cells Cancelled 04/06/18 05:22 Ovalocytes Cancelled 04/06/18 05:22 Stomatocytes Cancelled 04/06/18 05:22 Helmet Cells Cancelled 04/06/18 05:22 [place] Bodies Cancelled 04/06/18 05:22 [place] Rings Cancelled 04/06/18 05:22 [place] Cells Cancelled 04/06/18 05:22 Crenated Cell Cancelled 04/06/18 05:22 Acanthocytes (Spur) Cancelled 04/06/18 05:22 Rouleaux Cancelled 04/06/18 05:22 Schistocytes Cancelled 04/06/18 05:22 Sample Site [facility] 04/07/18 05:26 ABG pH 7.450 (7.35-7.45) 04/07/18 05:26 ABG pCO2 57.0 mmHg (35.0-45.0) H* 04/07/18 05:26 ABG pO2 65.0 mmHg (80.0-100.0) L 04/07/18 05:26 ABG HCO3 39.6 mmol/L (22-26) H* 04/07/18 05:26 ABG O2 Saturation 93.0 % (90-100) 04/07/18 05:26 ABG Base Excess 13.3 mmol/L (-2.0-2.0) H 04/07/18 05:26 Rosalio Test Na 04/07/18 05:26 A-a Gradient 185.0 mmHg 04/07/18 05:26 FiO2 45 04/07/18 05:26 Blood Gas Comments Judie abg well-mtf 04/07/18 05:26 Sodium 139 mmol/L (136-145) 04/07/18 04:33 Corrected Sodium 140 mmol/L (136-145) 04/07/18 04:33 Potassium 3.5 mmol/L (3.5-5.1) 04/07/18 04:33 Chloride 101 mmol/L (98-107) 04/07/18 04:33 Carbon Dioxide 37.1 mmol/L (21-32) H 04/07/18 04:33 BUN 22 mg/dL (7-18) H 04/07/18 04:33 Creatinine 0.65 mg/dL (0.55-1.02) 04/07/18 04:33 Est GFR (MDRD) Af Amer > 60 (>60) 04/07/18 04:33 Est GFR (MDRD) Non-Af > 60 (>60) 04/07/18 04:33 Glucose 124 mg/dL (65-99) H 04/07/18 04:33 POC Glucose (mg/dL) 100 mg/dL (65-99) H 04/07/18 06:14 Calcium 7.7 mg/dL (8.5-10.1) L 04/07/18 04:33 Corrected Calcium 8.9 mg/dL (8.5-10.1) 04/07/18 04:33 Magnesium 2.3 mg/dL (1.7-2.9) 04/03/18 05:55 Total Bilirubin 0.30 mg/dL (0.2-1.0) 04/07/18 04:33 AST 16 Units/L (15-37) 04/07/18 04:33 ALT 54 Units/L (12-78) 04/07/18 04:33 Alkaline Phosphatase 56 Units/L (46-116) 04/07/18 04:33 Total Protein 5.6 g/dL (6.4-8.2) L 04/07/18 04:33 Albumin 2.5 g/dL (3.4-5.0) L 04/07/18 04:33 Globulin 3.1 g/dL (2.5-4.5) 04/07/18 04:33 Albumin/Globulin Ratio 0.8 Ratio (1.1-2.1) L 04/07/18 04:33 RSV Nasal Swab Negative (NEGATIVE) 04/04/18 16:01 - Plan (1) Pneumonia Status: Acute Qualifiers: Pneumonia type: due to unspecified organism Laterality: bilateral Lung location: unspecified part of lung Qualified Code(s): J18.9 - Pneumonia, unspecified organism Plan: IV FORTAZ, IV LEVAQUIN, SOLU-MEDROL 40MG IV Q8H, RESPIRATORY TREATMENTS, CONTINUE TO MONITOR (2) COPD with exacerbation Status: Acute Plan: SOLU-MEDROL 40MG IV Q8H PRN, RESPIRATORY TREATMENTS, SUPPLEMENTAL OXYGEN, CONTINUE TO MONITOR (3) Respiratory failure with hypoxia and hypercapnia Status: Acute Qualifiers: Chronicity: acute on chronic Qualified Code(s): J96.21 - Acute and chronic respiratory failure with hypoxia; J96.22 - Acute and chronic respiratory failure with hypercapnia Plan: LASIX 20MG IV BID, SUPPLEMENTAL OXYGEN, RESPIRATORY TREATMENTS, CONTINUE TO MONITOR (4) Emphysema of lung Status: Acute Qualifiers: Emphysema type: unspecified Qualified Code(s): J43.9 - Emphysema, unspecified Plan: RESPIRATORY TREATMENTS, SUPPLEMENTAL OXYGEN, CONTINUE TO MONITOR
--- NOTE | 2018-04-07 11:10 | RAD ---
HISTORY: Shortness of breath Study: Single view of the chest. Comparison: 04/06/2018 Findings: The cardiomediastinal silhouette is normal. No focal consolidations, pleural effusions or pneumothorax. Osseous structures demonstrate no acute abnormality. Chronic fibrosis of the lungs IMPRESSION: 1. No acute cardiopulmonary process. Reported By:
[2018-04-07] MEDS: NORCO 5/325 MG TAB PO PRN ×2 (14:01→21:00)
[2018-04-07] MEDS: VALIUM PO SCH (20:59)
[2018-04-07] MEDS: ELAVIL PO SCH (20:59)
[2018-04-07] MEDS: RESTORIL CAP 15 MG PO SCH (21:00)
[2018-04-08] MEDS: DUONEB 0.5 MG/3 MG NEB SCH ×3 (00:13→09:12)
[2018-04-08] MEDS: FORTAZ or TAZICEF VIAL INJ IVP SCH ×2 (05:57→12:59)
[2018-04-08] MEDS: LASIX IVP SCH (06:00)
[2018-04-08] MEDS: NORCO 5/325 MG TAB PO PRN ×2 (06:06→12:30)
[2018-04-08 06:11] LABS: BASOPHILS % (AUTO) 0.1 % (0.2-1.0); HEMATOCRIT 43.3 % (36.0-47.0); HEMOGLOBIN 14.6 g/dL (12.0-16.0); LYMPHOCYTES # (AUTO) 1.1 X10^3/uL (1.3-2.9); MEAN CORPUSCULAR HGB CONC 33.8 g/dL (33.0-35.0); MEAN CORPUSCULAR VOLUME 97.6 fL (80.0-100.0); MEAN PLATELET VOLUME 6.5 fL (7.4-11.0); MONOCYTES # (AUTO) 0.8 x10^3/uL (0.3-0.8); MONOCYTES % (AUTO) 6.4 % (0.0-13.0); NEUTROPHILS % (AUTO) 84.5 % (42.0-75.0); PLATELET COUNT 412 X10^3/uL (150.0-450.0); RED BLOOD COUNT 4.44 X10^6/uL (3.5-5.4); RED CELL DISTRIBUTION WIDTH 13.5 % (11.6-16.5); WHITE BLOOD COUNT 11.8 X10^3/uL (3.6-10.0)
[2018-04-08 06:25] LABS: ALANINE AMINOTRANSFERASE 62 Units/L (12-78); ALBUMIN 2.4 g/dL (3.4-5.0); ALKALINE PHOSPHATASE 51 Units/L (46-116); ASPARTATE AMINO TRANSFERASE 27 Units/L (15-37); BLOOD UREA NITROGEN 23 mg/dL (7-18); CALCIUM 7.7 mg/dL (8.5-10.1); CHLORIDE 100 mmol/L (98-107); CREATININE 0.58 mg/dL (0.55-1.02); SODIUM 138 mmol/L (136-145); TOTAL PROTEIN 5.5 g/dL (6.4-8.2); eGFR NON BLACK RACES > 60 (>60)
[2018-04-08 06:27] LABS: ABG BASE EXCESS 14.7 mmol/L (-2.0-2.0)
[2018-04-08 06:28] LABS: ABG HCO3 40.8 mmol/L (22-26); FRACTIONATED INSPIRED OXYGEN 47
[2018-04-08] MEDS: K-DUR TAB 20 MEQ PO PRN ×2 (06:52→13:01)
--- NOTE | 2018-04-08 06:52 | RAD ---
HISTORY: Shortness of breath. Prior history of COPD Study: Single-view chest Comparison: 04/07/2018 Findings: Trachea is midline. There is again evidence of spine stimulating electrodes present in the mid thoracic region. Heart size is normal. There is chronic elevation of the right hemidiaphragm. The configuration of the diaphragm does not exclude a small subpulmonic effusion on the right. 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 Improved aeration is seen in the left lung base compared to prior study. Osseous structures are intact. IMPRESSION: COPD with interstitial fibrotic change. There is improved aeration noted in the left lower lobe. No consolidation is seen. There is elevation of the right hemidiaphragm. The configuration of the diaphragm does not exclude a small subpulmonic effusion . Reported By:
[2018-04-08] MEDS: TUSSIONEX PENNKINETIC SUSP PO PRN (07:32)
[2018-04-08] MEDS: ROBITUSSIN DM PO PRN (07:38)
[2018-04-08] MEDS: ZANAFLEX PO SCH (08:41)
[2018-04-08] MEDS: ELIQUIS PO SCH (08:41)
[2018-04-08] MEDS: CARDIZEM SR 120 MG PO SCH (08:41)
[2018-04-08] MEDS: FOLIC ACID TAB 1 MG PO SCH (08:41)
[2018-04-08] MEDS: NICOTINE PATCH TD SCH (08:42)
[2018-04-08] MEDS: LEVAQUIN PREMIX IV 750 MG 750 MG/150 ML BAG IV SCH (08:42)
[2018-04-08] MEDS: ESTRATEST TAB 1.25/2.5 MG PO SCH (08:51)
[2018-04-08] MEDS: MUCOMYST 20% 200 MG/ML NEB SCH (09:12)
[2018-04-08] MEDS: PULMICORT NEB TX 0.5 MG NEB SCH (09:13)
[2018-04-08] MEDS: NS 1000 ML 1,000 ML IV SCH (10:54)
[2018-04-08 12:29] VITALS: BP 114/69
--- NOTE | 2018-04-20 10:29 | PCM.PROG ---
Progress Note - Progress Note for Day of Date of Exam: 04/07/18 - Subjective Subjective: WAS ADMITTED FOR PNEUMONIA AND COPD EXACERBATION. TODAY, SHE IS ALERT AND ORIENTED, LYING IN BED ON MORNING ROUNDS. SHE CONTINUES WITH COMPLAINTS OF SHORTNESS OF BREATH, PRODUCTIVE COUGH, AND LOWER EXTREMITY EDEMA. ON EXAMINATION, HEART IS REGULAR IN RATE AND RHYTHM. BILATERAL LUNGS ARE NOTED WITH SCATTERED WHEEZING AND RHONCHI TO AUSCULTATION. LOWER EXTREMITIES NOTED WITH TRACE EDEMA. SHE IS CURRENTLY UTILIZING HIGH FLOW HEATED OXYGEN. HER VITALS THIS MORNING ARE 99.6-86-20-90%-112/59. LABS WERE OBTAINED. ABNORMAL LAB VALUES INCLUDE THE FOLLOWING: WBC 11.7, POTASSIUM 3.4, CUN 21, GLUCOSE 123, CALCIUM 7.6, TOTAL PROTEIN 5.5, ALBUMIN 2.4. SPUTUM CULTURE REVEALED GROWTH OF KLEBS IELLA PNEUMONIAE. A CHEST XRAY WAS OBTAINED THIS MORNING AND AND REVEAL: No acute cardiopulmonary process. SHE IS CURRENTLY RECEIVING LEVAQUIN IV, SOLU- MEDROL 40MG IV Q8H, AND RESPIRATORY TREATMENTS. TODAY, WE WILL CONTINUE WITH CURRENT PLAN OF CARE. OTHERWISE, WE PLAN TO FOLLOW UP WITH AM LABS AND CONTINUE TO MONITOR PATIENT. - Past Medical Family Social History Past Med/Fam/Surg Hx: No changes since H&P Allergies: Allergies gabapentin [From Gralise] Allergy (Verified 08/24/17 17:32) - Review of Systems ROS: No change since H&P - Vital Signs and I&O's Vital Signs: Temperature 97.7 F Pulse Rate [Right] 88 Pulse Rate 75 Respiratory Rate 24 Blood Pressure [Right Arm] 110/59 Blood Pressure [Left Arm] 101/60 Blood Pressure 114/69 O2 Sat by Pulse Oximetry 24 - Physical Exam Oriented: Normal Eyes: Normal Ear: Normal Nose: Normal Throat: Normal Respiratory: Generalized, Wheezes, Rhonchi Cardiovascular: Normal. negative: S3, S4, Murmur : Normal Auscultation: Bowel Sounds: Normal Tenderness: Normal Skin: Normal Musculoskeletal: Normal Psychiatric: Normal Mood Description: Calm Affect: Normal Speech Pattern: Clear, Appropriate - Laboratory and Diagnostics Result Diagrams: 04/08/18 05:15 04/08/18 09:48 Labs: 03/31/18 18:53 Sputum - Expectorated Sputum Sputum Culture - Final Klebsiella Pneumoniae 03/31/18 18:53 Sputum - Expectorated Sputum - Final Laboratory WBC 11.8 X10^3/uL (3.6-10.0) H 04/08/18 05:15 RBC 4.44 X10^6/uL (3.5-5.4) 04/08/18 05:15 Hgb 14.6 g/dL (12.0-16.0) 04/08/18 05:15 Hct 43.3 % (36.0-47.0) 04/08/18 05:15 MCV 97.6 fL (80.0-100.0) 04/08/18 05:15 MCH 33.0 pg (27.0-34.0) 04/08/18 05:15 MCHC 33.8 g/dL (33.0-35.0) 04/08/18 05:15 RDW 13.5 % (11.6-16.5) 04/08/18 05:15 Plt Count 412 X10^3/uL (150.0-450.0) 04/08/18 05:15 Plt Count Comment Adequate (ADEQUATE) 04/07/18 04:33 MPV 6.5 fL (7.4-11.0) L 04/08/18 05:15 Neut % (Auto) 84.5 % (42.0-75.0) H 04/08/18 05:15 Lymph % (Auto) 9.0 % (21.0-51.0) L 04/08/18 05:15 [place] % (Auto) 6.4 % (0.0-13.0) 04/08/18 05:15 Eos % (Auto) 0.0 % (0.9-2.9) L 04/08/18 05:15 Baso % (Auto) 0.1 % (0.2-1.0) L 04/08/18 05:15 Neut # (Auto) 10.0 x10^3/uL (2.2-4.8) H 04/08/18 05:15 Lymph # (Auto) 1.1 X10^3/uL (1.3-2.9) L 04/08/18 05:15 [place] # (Auto) 0.8 x10^3/uL (0.3-0.8) 04/08/18 05:15 Eos # (Auto) 0.0 x10^3/uL (0.0-0.2) 04/08/18 05:15 Baso # (Auto) 0.0 X10^3/uL (0.0-0.1) 04/08/18 05:15 Absolute Nucleated RBC 0.0 /100WBC 04/08/18 05:15 Total Counted 100 04/07/18 04:33 Neutrophils % (Manual) 93 % (39-76) H 04/07/18 04:33 Band Neutrophils % 3 % (0-10) 04/04/18 05:00 Lymphocytes % (Manual) 5 % (13-43) L 04/07/18 04:33 Monocytes % (Manual) 2 % (4-9) L 04/07/18 04:33 Nucleated RBCs Cancelled 04/06/18 05:22 Atypical Lymphocytes Cancelled 04/06/18 05:22 Blast Cells Cancelled 04/06/18 05:22 Smudge Cells Cancelled 04/06/18 05:22 Toxic Granulation Cancelled 04/06/18 05:22 Dohle Bodies Cancelled 04/06/18 05:22 Jose Rods Cancelled 04/06/18 05:22 Plt Clumps, EDTA Cancelled 04/06/18 05:22 Giant Platelets Cancelled 04/06/18 05:22 Plt Morphology Comment Normal (NORMAL) 04/07/18 04:33 RBC Morphology Normal (NORMAL) 04/07/18 04:33 Dimorphic RBCs Cancelled 04/06/18 05:22 Polychromasia Cancelled 04/06/18 05:22 Hypochromasia Cancelled 04/06/18 05:22 Poikilocytosis Cancelled 04/06/18 05:22 Basophilic Stippling Cancelled 04/06/18 05:22 Anisocytosis Cancelled 04/06/18 05:22 Microcytosis Cancelled 04/06/18 05:22 Macrocytosis Cancelled 04/06/18 05:22 Spherocytes Cancelled 04/06/18 05:22 Pappenheimer Bodies Cancelled 04/06/18 05:22 Sickle Cells Cancelled 04/06/18 05:22 Target Cells Cancelled 04/06/18 05:22 Tear Drop Cells Cancelled 04/06/18 05:22 Ovalocytes Cancelled 04/06/18 05:22 Stomatocytes Cancelled 04/06/18 05:22 Helmet Cells Cancelled 04/06/18 05:22 [place] Bodies Cancelled 04/06/18 05:22 [place] Rings Cancelled 04/06/18 05:22 [place] Cells Cancelled 04/06/18 05:22 Crenated Cell Cancelled 04/06/18 05:22 Acanthocytes (Spur) Cancelled 04/06/18 05:22 Rouleaux Cancelled 04/06/18 05:22 Schistocytes Cancelled 04/06/18 05:22 Sample Site Right brachial 04/08/18 06:15 ABG pH 7.470 (7.35-7.45) H 04/08/18 06:15 ABG pCO2 56.0 mmHg (35.0-45.0) H* 04/08/18 06:15 ABG pO2 76.0 mmHg (80.0-100.0) L 04/08/18 06:15 ABG HCO3 40.8 mmol/L (22-26) H* 04/08/18 06:15 ABG O2 Saturation 96.0 % (90-100) 04/08/18 06:15 ABG Base Excess 14.7 mmol/L (-2.0-2.0) H 04/08/18 06:15 Rosalio Test Na 04/08/18 06:15 A-a Gradient 189.0 mmHg 04/08/18 06:15 FiO2 47 04/08/18 06:15 Blood Gas Comments Judie well jts 04/08/18 06:15 Sodium 138 mmol/L (136-145) 04/08/18 05:15 Corrected Sodium TNP 04/08/18 05:15 Potassium 3.4 mmol/L (3.5-5.1) L 04/08/18 09:48 Chloride 100 mmol/L (98-107) 04/08/18 05:15 Carbon Dioxide 32.0 mmol/L (21-32) 04/08/18 05:15 BUN 23 mg/dL (7-18) H 04/08/18 05:15 Creatinine 0.58 mg/dL (0.55-1.02) 04/08/18 05:15 Est GFR (MDRD) Af Amer > 60 (>60) 04/08/18 05:15 Est GFR (MDRD) Non-Af > 60 (>60) 04/08/18 05:15 Glucose 93 mg/dL (65-99) 04/08/18 05:15 POC Glucose (mg/dL) 100 mg/dL (65-99) H 04/07/18 06:14 Calcium 7.7 mg/dL (8.5-10.1) L 04/08/18 05:15 Corrected Calcium 9.0 mg/dL (8.5-10.1) 04/08/18 05:15 Magnesium 1.9 mg/dL (1.7-2.9) 04/07/18 11:37 Total Bilirubin 0.60 mg/dL (0.2-1.0) 04/08/18 05:15 AST 27 Units/L (15-37) 04/08/18 05:15 ALT 62 Units/L (12-78) 04/08/18 05:15 Alkaline Phosphatase 51 Units/L (46-116) 04/08/18 05:15 Total Protein 5.5 g/dL (6.4-8.2) L 04/08/18 05:15 Albumin 2.4 g/dL (3.4-5.0) L 04/08/18 05:15 Globulin 3.1 g/dL (2.5-4.5) 04/08/18 05:15 Albumin/Globulin Ratio 0.8 Ratio (1.1-2.1) L 04/08/18 05:15 [id number] 140 mg/dL (90-200) 04/05/18 05:31 RSV Nasal Swab Negative (NEGATIVE) 04/04/18 16:01 - Plan (1) Pneumonia Status: Acute Qualifiers: Pneumonia type: due to unspecified organism Laterality: bilateral Lung location: unspecified part of lung Qualified Code(s): J18.9 - Pneumonia, unspecified organism Plan: IV FORTAZ, IV LEVAQUIN, SOLU-MEDROL 40MG IV Q8H, RESPIRATORY TREATMENTS, CONTINUE TO MONITOR (2) COPD with exacerbation Status: Acute Plan: SOLU-MEDROL 40MG IV Q8H PRN, RESPIRATORY TREATMENTS, SUPPLEMENTAL OXYGEN, CONTINUE TO MONITOR (3) Respiratory failure with hypoxia and hypercapnia Status: Acute Qualifiers: Chronicity: acute on chronic Qualified Code(s): J96.21 - Acute and chronic respiratory failure with hypoxia; J96.22 - Acute and chronic respiratory failure with hypercapnia Plan: LASIX 20MG IV BID, SUPPLEMENTAL OXYGEN, RESPIRATORY TREATMENTS, CONTINUE TO MONITOR (4) Emphysema of lung Status: Acute Qualifiers: Emphysema type: unspecified Qualified Code(s): J43.9 - Emphysema, unspecified Plan: RESPIRATORY TREATMENTS, SUPPLEMENTAL OXYGEN, CONTINUE TO MONITOR
--- NOTE | 2018-05-13 22:45 | DR.CARTERD ---
- Discharge Summary for: Discharge Summary for Date of:: 04/08/18 - Admission Date Date of Admission: 03/31/18 - Admission Diagnoses Admission Diagnosis: (1) Pneumonia (2) COPD with exacerbation - Discharge Date Discharge Date: 04/08/18 - Discharge Diagnoses Discharge Diagnosis: (1) Pneumonia (2) COPD with exacerbation (3) Respiratory failure with hypoxia and hypercapnia (4) Emphysema of lung - Hospital Course Hospital Course: DAY ONE, MS. CHAND WAS SEEN IN THE OFFICE TODAY FOR SHORTNESS OF BREATH AND A PRODUCTIVE COUGH. HER OXYGEN SATURATIONS WERE NOTED TO BE IN THE 60S IN THE OFFICE. WE PLANNED TO ADMIT PATIENT FOR FURTHER EVALUATION AND TREATMENT OF COPD EXACERBATION VS PNEUMONIA. PATIENT ADMITTED TO THE HOSPITAL FOR EVALUATION AND TREATMENT OF PNEUMONIA. DAY TWO, WAS ADMITTED FOR PNEUMONIA AND COPD EXACERBATION. ON ARRIVAL TO THE HOSPITAL YESTERDAY, HER OXYGEN SATURATIONS WERE NOTED TO BE IN THE 40S ON ROOM AIR. AN ABG WAS OBTAINED AND REVEALED AN OXYGEN SATURATION IN THE 70S. RESPIRATORY THERAPY PLACED PATIENT ON THE BIPAP. TODAY, SHE WAS ALERT AND ORIENTED, LYING IN BED ON MORNING ROUNDS. SHE CONTINUED WITH COMPLAINTS OF SHORTNESS OF BREATH AND A PRODUCTIVE COUGH. ON EXAMINATION, HEART WAS REGULAR IN RATE AND RHYTHM. BILATERAL LUNGS WERE NOTED WITH SCATTERED WHEEZI NG AND RHONCHI TO AUSCULTATION. SHE WAS CURRENTLY UTILIZING THE NASAL CANNULA AT 3L/MIN. SHE DID NOT APPEAR TO BE IN ANY ACUTE DISTRESS AT THAT TIME. HER VITALS THIS MORNING WERE 97.7-88-20-97%-110/59. ABNORMAL LAB VALUES INCLUDED THE FOLLOWING: WBC DECREASED FROM 20.1 TO 15.0, GLUCOSE 220, CALCIUM 8.2, TOTAL PROTEIN 6.2, ALBUMIN 2.8. SPUTUM CULTURE PENDING. A CHEST XRAY WAS OBTAINED AND REVEALED: The heart is within normal limits in size. The trudy are normal. Diffuse chronic interstitial lung disease is present not significantly different from the prior examination. No definite alveolar infiltrates are identified. A small left pleural effusion may be present. The bony thorax is unremarkable. SHE RECEIVED FORTAZ AND LEVAQUIN IV, SOLU-MEDROL 40MG IV Q8H, AND RESPIRATORY TREATMENTS. WE TRANSFERRED HER TO THE INTENSIVE CARE UNIT FOR CLOSER OBSERVATION. WE CONTINUED WITH CURRENT PLAN OF CARE. WE FOLLOWED UP WITH AM LABS AND CONTINUED TO MONITOR PATIENT. DAY FOUR, The patient was diagnosed with pneumonia and has been on IV antibiotics, supplemental oxygen, respiratory therapy, and repeat ABGs. She had have a chest x-ray this morning with patchy left basilar opacity, as well as trace basilar pleural effusion versus pleural thickening. The patients white count this morning was 16.7. She had been treated with corticosteroids. Her potassium was slightly decreased at 3.3, BUN 17, and creatine of 0.72. The patients blood gas yesterday afternoon had a PO2 of 58 and PCO2 of 51. We ordered repeat ABG every morning. The patient continued to complain of some shortness of breath at rest. Her sputum was positive for Klebsiella and was sensitive to regimen at this time. he was resting quietly. The patient had diffuse expiratory wheezes and diffuse rhonchi. Heart rate revealed regular rate of rhythm. Abdomen was soft, nontender. Bowel sounds were present times all four quadrants. No lower extremity edema. The patients overall condition was moderate respiratory di stress. She was stable but guarded. DAY SIX, SHE WAS ALERT AND ORIENTED, LYING IN BED ON MORNING ROUNDS. SHE CONTINUED WITH COMPLAINTS OF SHORTNESS OF BREATH AND A PRODUCTIVE COUGH. ON EXAMINATION, HEART WAS REGULAR IN RATE AND RHYTHM. BILATERAL LUNGS WERE NOTED WITH SCATTERED WHEEZING AND RHONCHI TO AUSCULTATION. SHE WAS CURRENTLY UTILIZING HIGH FLOW HEATED OXYGEN. HER VITALS THIS MORNING ARE 98.9-17-79-90NC-121/58. ABNORMAL LAB VALUES INCLUDED THE FOLLOWING: WBC 10.7, BUN 21, GLUCOSE 131, CALCIUM 7.8, TOTAL PROTEIN 6.1, ALBUMIN 2.6. AN ABG WAS OBTAINED AND REVEALED: PH 7.410, PC02 50.0, P02 48.0, HC03 31.7, 02 SATURATION 84 ON 25% FIO2 HIGH FLOW NASAL CANNULA. SPUTUM CULTURE REVEALED GROWTH OF KLEBSIELLA PNEUMONIAE. A CHEST XRAY WAS OBTAINED THIS MORNING AND AND REVEALED N O SIGNIFICANT CHANGE FROM THE PRIOR EXAMINATION. SHE RECEIVED LEVAQUIN IV, SOLU- MEDROL 40MG IV Q8H, AND RESPIRATORY TREATMENTS. WE CONTINUED WITH CURRENT PLAN OF CARE. WE CONSULTED FOR OXYGEN THERAPY AT HOME DUE TO COPD WITH HYPERCAPNIA. WE OBTAINED AN ECHO AND CHEST CT WITH CONTRAST TODAY. WE CONTINUED WITH CURRENT PLAN OF CARE. WE FOLLOWED UP WITH AM LABS AND CONTINUED TO MONITOR PATIENT. DAY EIGHT, SHE WAS ALERT AND ORIENTED, LYING IN BED ON MORNING ROUNDS. SHE CONTINUED WITH COMPLAINTS OF SHORTNESS OF BREATH, PRODUCTIVE COUGH, AND LOWER EXTREMITY EDEMA. ON EXAMINATION, HEART WAS REGULAR IN RATE AND RHYTHM. BILATERAL LUNGS WERE NOTED WITH SCATTERED WHEEZING AND RHONCHI TO AUSCULTATION. LOWER EXTREMITIES NOTED WITH TRACE EDEMA. SHE WAS CURRENTLY UTILIZING HIGH FLOW HEATED OXYGEN. HER VITALS THIS MORNING WERE 99.6-86-20-90%-112/59. ABNORMAL LAB VALUES INCLUDED THE FOLLOWING: WBC 11.7, POTASSIUM 3.4, CUN 21, GLUCOSE 123, CALCIUM 7.6, TOTAL PROTEIN 5.5, ALBUMIN 2.4. SPUTUM CULTURE REVEALED GROWTH OF KLEBSIELLA PNEUMONIAE. A CHEST XRAY WAS OBTAINED THIS MORNING AND AND REVEAL: No acute cardiopulmonary process. SHE RECEIVED LEVAQUIN IV, SOLU-MEDROL 40MG IV Q8H, AND RESPIRATORY TREATMENTS. WE CONTINUED WITH CURRENT PLAN OF CARE. WE FOLLOWED UP WITH AM LABS AND CONTINUED TO MONITOR PATIENT. DAY NINE, PATIENT WAS SITTING UP IN BED ALERT AND ORIENTED DURING MORNING ROUNDS. PATIENT STATED THAT HER SYMPTOMS WERE IMPROVED. CASE MANAGEMENT HAD PATIENT SET UP WITH HOME OXYGEN AND A PORTABLE TANK WAS DELIVERED TO HER HOSPITAL ROOM FOR DISCHARGE. LABS WERE WIYHIN NORMAL RANGE FOR PATIENT. VITAL SIGNS WERE STABLE. WE PLANNED FOR DISCHARGE. INSTRUCTIONS FOR MEDICATIONS AND FOLLOW UPS WERE DISCUSSED WITH PATIENT AND FAMILY, BOTH VOICED UNDERSTANDING. PATIENT WAS DISCHARGED HOME IN STABLE CONDITION WITH FAMILY. - Discharge Medications Discharge Medications: Home Medication List ProAir HFA 1 inh INHALATION Q6H PRN 03/31/18 [History] Spiriva with HandiHaler 1 inh INHALATION BID 03/31/18 [History] cetirizine 10 mg PO DAILY PRN 03/31/18 [History] tizanidine [Zanaflex] 4 mg PO BID 03/31/18 [History] budesonide-formoterol [Symbicort] 2 puff INHALATION BID #1 g 04/08/18 [Rx] hydrocodone-chlorpheniramine [Tussionex Pennkinetic ER] 5 ml PO Q12H PRN #100 ml 04/08/18 [Rx] ipratropium-albuterol 3 ml INHALATION Q8H #50 units 04/08/18 [Rx] levofloxacin [Levaquin] 750 mg PO QDAY #10 tab 04/08/18 [Rx] methylprednisolone [Medrol (Delroy)] See Rx Instructions .ROUTE .COMPLEX #1 ea 04/08/18 [Rx] Prescriptions: budesonide-formoterol [Symbicort] Emanuel Paredes hydrocodone-chlorpheniramine [Tussionex Pennkinetic ER] Emanuel Paredes ipratropium-albuterol Emanuel Paredes levofloxacin [Levaquin] Emanuel Paredes methylprednisolone [Medrol (Delroy)] Emanuel Paredes Ambulatory Orders amitriptyline 50 mg PO HS 08/24/17 apixaban [Eliquis] 5 mg PO BID 08/24/17 diazepam 5 mg PO HS 08/24/17 diltiazem HCl 120 mg PO BID 08/24/17 estrogens-methyltestosterone 1 tab PO HS 08/24/17 folic acid 1 mg PO DAILY 08/24/17 temazepam [Restoril] 15 mg PO HS 08/24/17 - Discharge Disposition Discharge Disposition: PATIENT TO FOLLOW UP IN OUR OFFICE IN ONE WEEK.
== END 2018-04-08 14:50 | disposition home or self-care (01) | DRG 177 ==
LOC: MED/SURG → OBSVTOIN 17:27 → ICU 04-01 08:57
PROVIDERS: ADMIT Internal Medicine; ATTEND Internal Medicine
CPT/HCPCS: 36415; 36600; 71010; 71045; 71260; 80053; 82103; 82803; 83735; 84132; 85025; 87070; 87077; 87186; 87205; 87420; 93306; 94640; 94660; 94669; 94760; 99231; A4216; A4222; A4618; A7030; J0713; J1815; J1940; J1956; J2270; J2920; J3475; J7030; J7608; J7620; J7626